=== PATIENT | female | born 1975 | race African-American/Black ===

== ENCOUNTER 2017-08-14 04:42 | Emergency (ER) | payer MEDICAID ==
[~2017-08-14] VITALS: Ht 154.9 cm; Wt 61.2 kg
[~2017-08-14 04:42] MED LIST: AMOXIL500 MG PO; ANAPROX DS550 MG PO; CIPRODEX 0.3%-7.5 ML OT; FLOMAX0.4 MG PO; HYDROCODONE BIT1 T11 PO; MACROBID100 M1 PO; Motrin,Rufen800 MG PO; PHENERGAN W/DM120 ML PO; PHENERGAN25 M1 PO; PRILOSEC20 M2 PO; SUDAFED60 MG PO; TRIMOX500 MG PO; ULTRAM50 MG PO; ZANTAC150 MG PO; ZOFRAN ODT4 MG SL
[2017-08-14 05:28] LABS: BASO % 0.3 % (0.0-1.0); EOS # 0.1 10*3/uL (0.0-0.4); HEMATOCRIT 33.9 % (37.0-47.0); HEMOGLOBIN 11.2 g/dl (12.0-16.0); LYMPH % 53.9 % (27.0-41.0); MEAN CELL VOLUME 77.8 fl (81.0-99.0); MEAN CORPUSCULAR HGB 25.7 pg (27.0-31.0); MEAN PLATELET VOLUME 9.7 fl (9.6-12.3); MONO # 0.5 10*3/uL (0.1-1.0); MONO % 6.1 % (3.0-9.0); NEUT # 2.8 10*3/uL (2.3-7.9); NEUT % 38.4 % (47.0-73.0); PLATELET COUNT AUTOMATED 483 10*3/uL (130-400); RED BLOOD COUNT 4.36 10*6/uL (4.10-5.10); RED CELL DISTRI WIDTH 17.5 % (0-14.5); WHITE BLOOD COUNT 7.4 10*3/uL (4.8-10.8)
[2017-08-14 05:48] LABS: ALBUMIN 3.6 gm/dl (3.1-4.5); ALKALINE PHOSPHATASE 100 U/L (45-117); BUN 5 mg/dl (7-24); CHLORIDE 110 mmol/L (98-107); POTASSIUM 3.6 mmol/L (3.5-5.1); SGOT/AST 13 IU/L (3-35); SGPT/ALT 21 U/L (12-78); SODIUM 144 mmol/L (136-145); TOTAL PROTEIN 7.5 gm/dL (6.4-8.2)
[2017-08-14 05:51] LABS: TROPONIN I < 0.015 ng/ml (<0.045)
[2017-08-14 05:53] LABS: ACETAMINOPHEN (TYLENOL) < 2.0 ug/ml (10-30)
[2017-08-14 06:12] LABS: BILIRUBIN NEGATIVE (NEGATIVE); BLOOD TRACE-INTACT (NEGATIVE); CLARITY CLEAR (CLEAR); COLOR YELLOW (YELLOW); GLUCOSE NEGATIVE (NEGATIVE); KETONE NEGATIVE (NEGATIVE); LEUKO ESTERASE 1+ (NEGATIVE); NITRITE NEGATIVE (NEGATIVE); PH 7.5 (5.0-9.0); UROBILINOGEN 0.2 E.U./dl (0.2-1.0)
[2017-08-14 06:18] LABS: BACTERIA TRACE
[2017-08-14 06:19] LABS: RBC 0-2 rbc/hpf (0-2)
[2017-08-14 06:21] LABS: URINE AMPHETAMINES < 1000 (1000ng/ml); URINE BARBITURATES < 200 (200ng/ml); URINE BENZODIAZEPINES < 200 (200ng/ml); URINE CANNABINOIDS (THC) < 50 (50ng/ml); URINE COCAINE > 300 (300ng/ml); URINE METHADONE < 300 (300ng/ml); URINE OPIATES < 300 (300ng/ml)
[2017-08-14 06:22] LABS: URINE PHENCYCLIDINE < 25 (25ng/ml)
[2017-08-14 09:31] VITALS: BP 128/85
[2017-08-14] MEDS ORDERED: PRINIVIL10 MG PO (09:40)
[2017-08-14] MEDS ORDERED: FLAGYL500 MG PO (09:40)
== END 2017-08-14 09:55 | disposition home or self-care (01) ==
LOC: ED 04:42
PROVIDERS: Emergency Medicine Emergency Medical Services
DX: F10.129 Alcohol abuse with intoxication, unspecified (principal); I15.9 Secondary hypertension, unspecified; A59.9 Trichomoniasis, unspecified; F17.200 Nicotine dependence, unspecified, uncomplicated

== ENCOUNTER 2017-08-15 17:25 | Inpatient (IN) | payer MEDICAID ==
[~2017-08-15] VITALS: Ht 154.9 cm; Wt 62.6 kg
--- NOTE | ~2017-08-15 | PR ---
[place], [place] PROGRESS NOTE NAME: MARLENY CLANCY [facility] #: [id number] UNIT #: [id number] ROOM: 520 DOCTOR: CLAUDIA BRANTLEY MD BIRTHDATE: [birth year] DOS: 08/18/2017 The patient has been admitted to the hospital with chest pain and she has a history of drug abuse also. The patient underwent a stress test and echocardiogram. Stress test was negative. Echocardiogram showed some regurgitation, mitral regurgitation with slight enlargement of the left atrium. She is feeling better, but she still is complaining of some chest pain. At present, she is sitting comfortably and eating her breakfast. I discussed with the patient that she shall not be smoking and she is not to use any cocaine and discussed about it in detail and the patient agreed she will not do any of this anymore. Her blood pressure is 122/55, pulse 60, respirations 20, temperature 98.9. CLAUDIA BRANTLEY MD CM:PNTRANS [phone] CLAUDIA BRANTLEY MD 08/21/17 0616 interface
--- NOTE | ~2017-08-15 | PR ---
[place], [place] PROGRESS NOTE NAME: MARLENY CLANCY [facility] #: [id number] UNIT #: [id number] ROOM: 520 DOCTOR: JENNIFER RODRIGUEZ MD BIRTHDATE: [birth year] DOS: 08/19/2017 SUBJECTIVE: The patient is flat in bed, continued to complain of chest pain that appears coming from the right side, radiates downwards around her breasts to the left. The pain surprisingly is improved when the patient sat up and leaned forward. This has been going on since last night. There is no symptomatic palpitation. OBJECTIVE: VITAL SIGNS: Blood pressure 129/78, heart rate 79, respiratory rate of 14, temperature 97.9. NECK: Good upstroke, no bruit. HEART: S1, S2 with no rub. LUNGS: Clear to auscultation. EXTREMITIES: Lower extremities, no edema. LABORATORY DATA: White count 9.0, hemoglobin 9.8, potassium 4.2, creatinine 0.74. GFR more than 60%. ASSESSMENT AND PLAN: History of ____ chest pain in a patient with history of cocaine abuse, currently the pain appears to have some pleuritic component. For that, I will go ahead and check sed rate and CRP. I will hold on adding any medication for now pending the results of the above tests. The patient already had both echocardiogram and a stress test, both were normal with normal LV function and no wall motion abnormalities. JENNIFER RODRIGUEZ MD CM:PNTRANS [phone] JENNIFER RODRIGUEZ MD 08/21/17 2660 interface
--- NOTE | ~2017-08-15 | PR ---
[place], [place] PROGRESS NOTE NAME: MARLENY CLANCY [facility] #: [id number] UNIT #: [id number] ROOM: 520 DOCTOR: CLAUDIA BRANTLEY MD BIRTHDATE: [birth year] DOS: SUBJECTIVE: The patient has been admitted to hospital with cocaine overdose and chest pain. The patient is feeling somewhat better, but she is still having chest pain. No difficulty in breathing. No nausea. No vomiting. According to Dr. Evan Sommer, the patient is not having any cardiac problem. Her stress test and echocardiogram were normal and she is having atypical chest pain with hypertension, tobacco abuse and cocaine use. The patient is counseled in detail not to use any cocaine anymore, counseling done about it in detail and also advised to stop smoking. OBJECTIVE: CHEST: Clear. HEART: Regular. ABDOMEN: Soft. VITAL SIGNS: Blood pressure 119/53, pulse 75, respirations 18, temperature 98.4. PLAN: The patient will be encouraged to ambulate today and if everything is okay, she will be discharged home tomorrow. CLAUDIA BRANTLEY MD CM:PNTRANS [phone] CLAUDIA BRANTLEY MD 08/19/17 1055 interface
--- NOTE | ~2017-08-15 | PR ---
[place], [place] PROGRESS NOTE NAME: MARLENY CLANCY [facility] #: [id number] UNIT #: [id number] ROOM: 520 DOCTOR: MARTHA DOWNS MD BIRTHDATE: [birth year] DOS: 08/17/2017 SUBJECTIVE: The patient was seen in the Cardiology Department today, 08/17/2017, just prior to a stress test. She continues to have symptoms of fatigue and chest discomfort. In general, she feels poorly. She denies dyspnea, orthopnea or peripheral edema. OBJECTIVE: VITAL SIGNS: On exam today, her pulse is 84 and regular, blood pressure is 142/90. She is afebrile. NECK: Supple. She has no jugular distention. Carotids are full. LUNGS: Respirations are unlabored. Her chest is clear. HEART: Has regular rhythm with a soft S4 gallop. ABDOMEN: Benign. EXTREMITIES: Showed no edema. IMPRESSION: 1. Atypical chest pain. 2. Hypertension. 3. Tobacco abuse. 4. Cocaine abuse. 5. No evidence for acute myocardial ischemia seen on this admission. PLAN: We will proceed with a pharmacologic stress test. The patient feels too poorly to walk for her stress test. Further recommendations will depend upon the results of the stress test. I thank the hospitalist physicians for asking our advice regarding her care. MARTHA DOWNS MD CM:PNTRANS [phone] MARTHA DOWNS MD 08/17/17 1029 interface
[~2017-08-15 17:25] MED LIST changes: +FLAGYL500 MG PO; +PRINIVIL10 MG PO
[2017-08-15 17:32] VITALS: BP 148/104
[2017-08-15 17:37] VITALS: BP 149/104
[2017-08-15 18:10] LABS: BASO % 0.3 % (0.0-1.0); EOS # 0.2 10*3/uL (0.0-0.4); EOS % 1.7 % (1.0-4.0); HEMATOCRIT 33.1 % (37.0-47.0); HEMOGLOBIN 10.9 g/dl (12.0-16.0); LYMPH # 3.7 10*3/uL (1.3-4.4); LYMPH % 38.7 % (27.0-41.0); MEAN CELL VOLUME 77.9 fl (81.0-99.0); MEAN CORPUSCULAR HGB 25.6 pg (27.0-31.0); MEAN CORPUSCULAR HGB CONC 32.9 g/dl (33.0-37.0); MEAN PLATELET VOLUME 9.2 fl (9.6-12.3); MONO # 0.7 10*3/uL (0.1-1.0); MONO % 7.1 % (3.0-9.0); PLATELET COUNT AUTOMATED 495 10*3/uL (130-400); RED BLOOD COUNT 4.25 10*6/uL (4.10-5.10); RED CELL DISTRI WIDTH 17.8 % (0-14.5); WHITE BLOOD COUNT 9.5 10*3/uL (4.8-10.8)
[2017-08-15 18:27] LABS: ALBUMIN 3.4 gm/dl (3.1-4.5); ALKALINE PHOSPHATASE 111 U/L (45-117); BUN 7 mg/dl (7-24); CHLORIDE 107 mmol/L (98-107); CREATININE 0.73 mg/dL (0.55-1.02); LIPASE 96 U/L (73-393); POTASSIUM 4.2 mmol/L (3.5-5.1); SGOT/AST 37 IU/L (3-35); SGPT/ALT 30 U/L (12-78); SODIUM 138 mmol/L (136-145); TOTAL PROTEIN 7.1 gm/dL (6.4-8.2); TROPONIN I < 0.015 ng/ml (<0.045)
[2017-08-15 18:32] VITALS: BP 151/100
--- NOTE | 2017-08-15 18:33 | NUR ---
PT MEDICATED WITH TORADOL PER MID LEVEL ORDER FOR C/O CHEST PAIN.---JOON CAGE RN
[2017-08-15 18:36] LABS: ACT PARTIAL THROMBO TIME 23.8 SECONDS (20.8-31.5); INTERNATIONAL NORM RATIO 0.9 (2.0-3.5)
[2017-08-15 18:43] LABS: BILIRUBIN NEGATIVE (NEGATIVE); BLOOD NEGATIVE (NEGATIVE); CLARITY SL CLOUDY (CLEAR); COLOR YELLOW (YELLOW); GLUCOSE NEGATIVE (NEGATIVE); KETONE NEGATIVE (NEGATIVE); LEUKO ESTERASE NEGATIVE (NEGATIVE); NITRITE NEGATIVE (NEGATIVE); SPECIFIC GRAVITY 1.025 (1.005-1.030); UROBILINOGEN 0.2 E.U./dl (0.2-1.0)
[2017-08-15 18:52] LABS: URINE AMPHETAMINES < 1000 (1000ng/ml); URINE BARBITURATES > 200 (200ng/ml); URINE BENZODIAZEPINES < 200 (200ng/ml); URINE CANNABINOIDS (THC) < 50 (50ng/ml); URINE COCAINE > 300 (300ng/ml); URINE METHADONE < 300 (300ng/ml); URINE OPIATES < 300 (300ng/ml)
[2017-08-15 18:58] LABS: URINE PHENCYCLIDINE < 25 (25ng/ml)
[2017-08-15 19:24] VITALS: BP 169/96
--- NOTE | 2017-08-15 19:56 | NUR ---
CALLED TO GIVE REPORT AWAITING LEAH TO GIVE CALLBACK
[2017-08-15 20:30] VITALS: BP 150/93
--- NOTE | 2017-08-15 21:50 | NUR ---
SCHEDULED MORPHINE GIVEN FOR CHEST PAIN RATED 9/10. WILL MONITOR.
--- NOTE | 2017-08-15 22:00 | NUR ---
MORHINE EFFECTIVE. PATIENT STATES "I'M FEELING BETTER." PAIN WAS RATED 5/10, PATIENT SATISFIED.
[2017-08-16] VITALS: BP 140/90
--- NOTE | 2017-08-16 00:29 | NUR ---
PATIENT MEDICATED SLOWLY WITH MORPHINE 2 MG IV PER PRN ORDER FOR C/O CHEST PAIN. RATED PAIN A 8-9/10 WITH 10 BEING THE WORST . SEE EMAR. REINFORCED USE OF CALL LIGHT.
--- NOTE | 2017-08-16 05:55 | NUR ---
PATIENT MEDICATED SLOWLY WITH MORPHINE 2 MG IV PER PATIENT REQUEST AND PRN ORDER FOR C/O PAIN. RATED PAIN A 7/10 WITH 10 BEING THE WORST. SEE EMAR. REINFORCED USE OF CALL LIGHT.
[2017-08-16 06:37] LABS: BASO % 0.3 % (0.0-1.0); EOS # 0.2 10*3/uL (0.0-0.4); EOS % 2.4 % (1.0-4.0); HEMOGLOBIN 10.6 g/dl (12.0-16.0); LYMPH % 42.1 % (27.0-41.0); MEAN CORPUSCULAR HGB 26.2 pg (27.0-31.0); MEAN CORPUSCULAR HGB CONC 33.1 g/dl (33.0-37.0); MEAN PLATELET VOLUME 9.6 fl (9.6-12.3); MONO # 0.6 10*3/uL (0.1-1.0); NEUT # 4.6 10*3/uL (2.3-7.9); PLATELET COUNT AUTOMATED 459 10*3/uL (130-400); RED BLOOD COUNT 4.05 10*6/uL (4.10-5.10); RED CELL DISTRI WIDTH 17.7 % (0-14.5); WHITE BLOOD COUNT 9.4 10*3/uL (4.8-10.8)
[2017-08-16 06:58] LABS: BUN 8 mg/dl (7-24); CHLORIDE 107 mmol/L (98-107); CHOLESTEROL 141 mg/dL (<200); CREATININE 0.74 mg/dL (0.55-1.02); HDL CHOLESTEROL 70 mg/dl (40-60); LDL CHOLESTEROL 46 mg/dL (9-159); PHOSPHOROUS 2.7 mg/dL (2.5-4.9); POTASSIUM 4.2 mmol/L (3.5-5.1); SODIUM 137 mmol/L (136-145); TRIGLYCERIDES 124 mg/dl (<150); VLDL CHOLESTEROL 25 mg/dL (6-40)
[2017-08-16 07:46] LABS: VITAMIN D, 25-HYDROXY 8.2 ng/mL (30-100)
--- NOTE | 2017-08-16 08:00 | NUR ---
HOB ELEVATED, EASY RESPIRATIONS WITH SKIN W/D. PT ADMITS TO PERSISTANT MIDSTERNAL NON-RADIATING CHEST PAIN. DENIES VISUAL CHANGES TODAY BUT ADMITS TO DIZZINESS WITH AMBULATION. VSS & CHARTED. DR ALEXANDRA IN TO SEE PT & MADE AWARE OF PT C/O. CALL LIGHT SYSTEM REINFORCED FOR ASSISTANCE. SEE SHIFT ASSESSMENT. PT STATES MEDICATION GIVEN EARLIER EFFECTIVE FOR SHORT PERIODS. WILL CONTINUE TO MONITOR.
--- NOTE | 2017-08-16 08:30 | NUR ---
GROCERY PACKER VS. STATES SHE IS JUST VISITING HERE IN [place] AND THAT SHE LIVES IN [place], [place]. DENIES ANY DC NEEDS.
--- NOTE | 2017-08-16 10:37 | NUR ---
MEDICATED PO ORDERED PER PT REQUEST WITH NORCO FOR C/O MIDSTERNAL CHEST DISCOMFORT.NON-RADIATING.
[2017-08-16 12:00] VITALS: BP 136/79
--- NOTE | 2017-08-16 12:35 | NUR ---
DR DOWNS'S OFFICE STAFF NOTIFIED OF CONSULT.
--- NOTE | 2017-08-16 12:55 | NUR ---
DR MORA IN TO SEE PT & REQUESTS THAT THIS RN CALL DR POWERS/DR ALEXANDRA TO TRANSFER THIS PT TO HIS SERVICES.
--- NOTE | 2017-08-16 12:59 | NUR ---
SPOKE WITH DR SANCHEZ & REQUESTED THAT SERVICES BE TRANSFERRED TO DR MORA.
[2017-08-16 16:00] VITALS: BP 112/68
--- NOTE | 2017-08-16 17:30 | NUR ---
CALLED TO PTS ROOM, PT STATES "LEFT SIDED FACIAL NUMBNESS" NO OBVIOUS FACIAL DROOPING NOTED, POLICY DIRECTOR STRONG & EQUAL BILATERALLY, HA. SPEECH CLEAR. VSS & CHARTED. OFFERED SUPPORTIVE CARE. WILL INFORM DR DOWNS.
--- NOTE | 2017-08-16 18:26 | NUR ---
DR DOWNS IN TO SEE PT. INFORMED OF PTS EARLIER C/O OF LEFT SIDED FACIAL NUMBNESS.
[2017-08-16 20:00] VITALS: BP 115/80
[2017-08-17] VITALS: BP 112/56
[2017-08-17 06:18] LABS: BASO % 0.3 % (0.0-1.0); BUN 14 mg/dl (7-24); CHLORIDE 107 mmol/L (98-107); CREATININE 0.74 mg/dL (0.55-1.02); EOS # 0.2 10*3/uL (0.0-0.4); HEMATOCRIT 29.8 % (37.0-47.0); HEMOGLOBIN 9.8 g/dl (12.0-16.0); LYMPH % 43.8 % (27.0-41.0); MEAN CELL VOLUME 78.6 fl (81.0-99.0); MEAN CORPUSCULAR HGB 25.9 pg (27.0-31.0); MEAN CORPUSCULAR HGB CONC 32.9 g/dl (33.0-37.0); MEAN PLATELET VOLUME 9.6 fl (9.6-12.3); MONO # 0.7 10*3/uL (0.1-1.0); MONO % 7.2 % (3.0-9.0); NEUT # 4.2 10*3/uL (2.3-7.9); NEUT % 46.3 % (47.0-73.0); PLATELET COUNT AUTOMATED 450 10*3/uL (130-400); POTASSIUM 4.2 mmol/L (3.5-5.1); RED BLOOD COUNT 3.79 10*6/uL (4.10-5.10); RED CELL DISTRI WIDTH 17.7 % (0-14.5); SODIUM 139 mmol/L (136-145)
[2017-08-17 08:00] VITALS: BP 141/72; BP 142/90
--- NOTE | 2017-08-17 08:00 | NUR ---
LYING IN BED FLAT, NO OBVIOUS S/S DISTRESS NOTED. PT CONTINUES TO C/O MIDSTERNAL, NON-RADIATING CHEST PAIN. DENIES NAUSEA OR VISUAL CHANGES. DENIES FACIAL NUMBNESS BUT ADMITS TO "DIZZINESS WHEN I GET UP" DISCUSSED NPO STATUS FOR AM PROCEDURE. PT VOICES UNDERSTANDING. SEE SHIFT ASSESSMENT.
--- NOTE | 2017-08-17 10:01 | NUR ---
INFORMED SIGNED CONSENT OBTAINED FOR LEXISCAN STRESS WITH DR DOWNS. RESTING EKG NSR WITH PAC HR 68 BP 148/78. PULSE OX 100% LUNGS CLEAR. PT COMPLETED ONE MINUTE OF A LEXISCAN PROTOCOL WITH PT RECEIVING LEXISCAN 0.4MG IV OVER 10 SECONDS. NO ARRHYTMIAS, AND NON DIAGNOSTIC ST CHANGES NOTED WITH INFUISION, PT C/O HEADACHE. LAST RECOVERY HR OF 109 BP 144/82. PT IN STABLE CONDITION, AWAITING NUCLEAR IMAGES.
--- NOTE | 2017-08-17 10:35 | NUR ---
REMAINS IN CARDIAC REHAB
--- NOTE | 2017-08-17 10:50 | NUR ---
Patient not available for ECHO. she is off the floor for other testing.
--- NOTE | 2017-08-17 11:19 | NUR ---
MEDICATED PO ORDERED PER PT REQUEST WITH NORCO FOR C/O PERSISTANT MIDSTERNAL CHEST DISCOMFORT. PT RATES PAIN 05/24. SEE EMAR.
[2017-08-17 12:00] VITALS: BP 125/92
--- NOTE | 2017-08-17 12:30 | NUR ---
MEDICATION EFFECTIVE PER PT IN RELIEVING DISCOMFORT. WILL CONTINUE TO MONITOR.
--- NOTE | 2017-08-17 14:06 | NUR ---
DR DELVALLE AWARE OF CONSULT.
--- NOTE | 2017-08-17 14:08 | NUR ---
WENT TO PTS ROOM TO DISCUSS NPO STATUS, PT SLEEPING. DID NOT AWAKEN AT THIS TIME.
--- NOTE | 2017-08-17 14:32 | NUR ---
DR DELVALLE IN TO SEE PT.
[2017-08-17 16:00] VITALS: BP 129/79
[2017-08-17 20:00] VITALS: BP 127/63
--- NOTE | 2017-08-17 21:05 | NUR ---
PATIENT MEDICATED PER SCHEDULED MED FOR C/O CHEST PAIN. PATIENT MEDICATED SLOWLY WITH MORPHINE 2 MG IV PER ORDER. SEE EMAR. REINFORCED USE OF CALL LIGHT
[2017-08-18] VITALS: BP 122/55
[2017-08-18 08:00] VITALS: BP 126/70
--- NOTE | 2017-08-18 08:05 | NUR ---
PT REQUESTED PAIN MEDICATION FOR CHEST PAIN AROUND THE LEFT BREAST AREA. PAIN RATED AT 5 OUT OF 10. PAIN IS DESCRIBED PRESSURE AND CONSTANT.
--- NOTE | 2017-08-18 09:02 | NUR ---
PT STATES NORCO WAS EFFECTIVE. STATES PAIN IS STILL A 5 OUT OF 10 BUT "MORE TOLERABLE."
[2017-08-18 11:54] VITALS: BP 122/77
--- NOTE | 2017-08-18 14:13 | NUR ---
PT REQUESTED MEDICATION FOR MIDSTERNAL CHEST PAIN RATED AT 5 OUT OF 10. DESCRIBED CONSTANT AND FEELS LIKE "PRESSURE". PT SITTING UP, TALKING TO FRIEND. NO OBVIOUS DISTRESS NOTED.
--- NOTE | 2017-08-18 15:02 | NUR ---
PT STATES MEDICATION WAS EFFECTIVE FOR PAIN. PAIN RATED AT 2 OUT OF 10.
[2017-08-18 16:00] VITALS: BP 117/68
--- NOTE | 2017-08-18 16:40 | NUR ---
PT REQUESTED PAIN MEDICATION FOR MIDSTERNAL PAIN RATED AT 5 OUT OF 10 AND DESCRIBES IT CONSTANT AND "FEELS LIKE PRESSURE".
--- NOTE | 2017-08-18 17:13 | NUR ---
PT STATES NORCO WAS EFFECTIVE. RATES PAIN AT 1 OUT OF 10.
[2017-08-18 20:00] VITALS: BP 134/55
[2017-08-19] VITALS: BP 119/53
--- NOTE | 2017-08-19 07:49 | NUR ---
DR. BRANTLEY IN TO SEE PT.
[2017-08-19 08:00] VITALS: BP 129/78
--- NOTE | 2017-08-19 08:00 | NUR ---
PT REQUESTED MEDICATION FOR MIDSTRENAL CHEST PAIN RATED AT 6 OUT OF 10. PT DESCRIBES PAIN AT CONSTANT PRESSURE. NORCO GIVEN.
--- NOTE | 2017-08-19 08:52 | NUR ---
NORCO EFFECTIVE PER PT. PAIN RATED AT 1 OUT OF 10.
--- NOTE | 2017-08-19 11:50 | NUR ---
PER PT, MOTRIN EFFECTIVE FOR PAIN. RATES PAIN AT 2 OUT OF 10.
--- NOTE | 2017-08-19 11:55 | NUR ---
PT UP WALKING HALLS. NO DIZZINESS/SOB NOTED PER PT. TOLERATING WELL.
[2017-08-19 12:00] VITALS: BP 131/65
--- NOTE | 2017-08-19 14:12 | NUR ---
PT REQUESTED MEDICATION FOR MIDSTERNAL/LEFT BREAST AREA CHEST PAIN. RATED AT 7 OUT OF 10 AND DESCRIBED "CONSTANT PRESSURE."
--- NOTE | 2017-08-19 15:02 | NUR ---
PER PT, MEDICATION EFFECTIVE FOR PAIN. PAIN RATED AT 2 OUT OF 10.
[2017-08-19 16:00] VITALS: BP 114/63; BP 135/54
--- NOTE | 2017-08-19 18:01 | NUR ---
PT IN BED, TALKING ON PHONE AND EATING WHILE WATCHING TV. PT IN NO OBVIOUS DISTRESS OR PAIN.
--- NOTE | 2017-08-19 18:56 | NUR ---
PT REQUESTED MEDICATION FOR MIDSTERNAL/LEFT BREAST AREA CHEST PAIN. PT RATES PAIN AT 6 OUT OF 10 AND DESCRIBES IT A "CONSTANT PRESSURE." DIETER KOHLER.
--- NOTE | 2017-08-19 19:54 | NUR ---
PATIENT AWAKE IN BED AT THIS TIME. PATIENT IS C/O OF SOME CHEST DISCOMFORT BUT STATES IT IS MUCH BETTER THAN IT HAD BEEN, NOW RATING PAIN 6/10. DISCUSSED SCHEDULED IV MORPHINE DUE AT 2099. PATIENT REQUESTING THAT MEDICATION BE GIVEN AFTER 2129 BECAUSE IT MAKES HER TIRED. WILL ADMINISTER SCHEDULED MEDICATION AFTER 2129. PATIENT VOICES NO OTHER COMPLAINTS AT THIS TIME. WILL MONITOR. CALL LIGHT LEFT IN REACH.
[2017-08-19 20:00] VITALS: BP 121/74
--- NOTE | 2017-08-19 21:39 | NUR ---
SCHEDULED IV MORPHINE ADMINISTERED SLOWLY PER ORDER. MEDICATION GIVEN AFTER 2129 PER PATIENT REQUEST. PATIENT RATING CHEST DISCOMFORT 6/10 AT THIS TIME. WILL MONITOR EFFECTIVENESS OF MEDICATION. CALL LIGHT LEFT IN REACH.
--- NOTE | 2017-08-19 22:21 | NUR ---
PATIENT STATES EARLIER MEDICATION HELPED WITH HER CHEST PAIN. NOW RATING IT 3/10. WILL CONTINUE TO MONITOR. CALL LIGHT IN REACH.
[2017-08-20] VITALS: BP 118/69
--- NOTE | 2017-08-20 02:41 | NUR ---
PATIENT AWAKE IN BED WATCHING TV. PATIENT DOES NOT APPEAR TO BE IN DISTRESS AND DENIES ANY NEW OR WORSENING SYMPTOMS AT THIS TIME. WILL CONTINUE TO MONITOR. CALL LIGHT LEFT IN REACH.
--- NOTE | 2017-08-20 04:02 | NUR ---
PATIENT ASLEEP IN BED AT THIS TIME. RESPIRATIONS EASY. NO S/S OF DISTRESS NOTED. ON ROOM AIR. CALL LIGHT IN REACH.
[2017-08-20 06:02] LABS: CREATININE 0.64 mg/dL (0.55-1.02)
[2017-08-20 06:17] LABS: BASO % 0.2 % (0.0-1.0); EOS # 0.2 10*3/uL (0.0-0.4); EOS % 2.5 % (1.0-4.0); HEMATOCRIT 32.7 % (37.0-47.0); HEMOGLOBIN 10.7 g/dl (12.0-16.0); LYMPH # 3.5 10*3/uL (1.3-4.4); LYMPH % 41.2 % (27.0-41.0); MEAN CORPUSCULAR HGB 26.2 pg (27.0-31.0); MEAN CORPUSCULAR HGB CONC 32.7 g/dl (33.0-37.0); MEAN PLATELET VOLUME 9.8 fl (9.6-12.3); MONO # 0.8 10*3/uL (0.1-1.0); MONO % 9.2 % (3.0-9.0); NEUT % 46.4 % (47.0-73.0); PLATELET COUNT AUTOMATED 496 10*3/uL (130-400); RED BLOOD COUNT 4.09 10*6/uL (4.10-5.10); RED CELL DISTRI WIDTH 18.1 % (0-14.5); WHITE BLOOD COUNT 8.5 10*3/uL (4.8-10.8)
[2017-08-20 08:00] VITALS: BP 124/50
--- NOTE | 2017-08-20 08:00 | NUR ---
RESTING QUIETLY NO C/O NO DISTRESS NOTED. STATES SHE IS FEELING BETTER. SEE SHIFT ASSESSMENT.
[2017-08-20 12:00] VITALS: BP 124/50
--- NOTE | 2017-08-20 13:34 | NUR ---
MEDICATED PO NORCO FOR C/O LEFT SIDE RIB AND CHEST PAIN. RATES PAIN 5/10. WHEN ASK PT TO POINT TO WHERE PAIN IS POINTS TO RIGHT SIDE OF CHEST.
--- NOTE | 2017-08-20 14:35 | NUR ---
DISCHARGED TO HOME. INSTRUCTIONS REVIEWED WITH PT. VOICES UNDERSTANDING. REFUSED TO GET FLU VACCINE.
== END 2017-08-20 14:50 | disposition home or self-care (01) | DRG 918 ==
LOC: ED 17:25 → EDHOLD 19:10 → 5E 19:10
PROVIDERS: Internal Medicine; Physician Assistant; ADMIT Internal Medicine
PROC: 4A02XM4 Measurement of Cardiac Total Activity, External Approach (ICD-10-PCS; principal; 2017-08-17)
PROC: 3E073KZ Introduction of Other Diagnostic Substance into Coronary Artery, Percutaneous Approach (ICD-10-PCS; 2017-08-17)
DX: T40.5X1A Poisoning by cocaine, accidental (unintentional), initial encounter (principal); E44.1 Mild protein-calorie malnutrition; E83.41 Hypermagnesemia; A59.9 Trichomoniasis, unspecified; D50.9 Iron deficiency anemia, unspecified; D47.3 Essential (hemorrhagic) thrombocythemia; I16.1 Hypertensive emergency; I10 Essential (primary) hypertension; R74.0 Nonspecific elevation of levels of transaminase and lactic acid dehydrogenase [LDH]; K21.9 Gastro-esophageal reflux disease without esophagitis; F19.90 Other psychoactive substance use, unspecified, uncomplicated; M94.0 Chondrocostal junction syndrome [Tietze]; F17.210 Nicotine dependence, cigarettes, uncomplicated; Z71.6 Tobacco abuse counseling; Z79.899 Other long term (current) drug therapy; Z72.89 Other problems related to lifestyle; Z68.23 Body mass index [BMI] 23.0-23.9, adult; Z79.82 Long term (current) use of aspirin

== ENCOUNTER 2018-02-09 21:15 | Inpatient (IN) | payer OTHER ==
[~2018-02-09] VITALS: Ht 154.9 cm; Wt 56.3 kg
[2018-02-09] VITALS (7 sets, daily range): BP systolic 131–167; BP diastolic 71–122
[2018-02-09 21:29] LABS: HEMATOCRIT 39.3 % (37.0-47.0); HEMOGLOBIN 12.7 g/dl (12.0-16.0); MEAN CELL VOLUME 78.3 fl (81.0-99.0); MEAN CORPUSCULAR HGB 25.3 pg (27.0-31.0); MEAN CORPUSCULAR HGB CONC 32.3 g/dl (33.0-37.0); MEAN PLATELET VOLUME 9.2 fl (9.6-12.3); PLATELET COUNT AUTOMATED 656 10*3/uL (130-400); RED BLOOD COUNT 5.02 10*6/uL (4.10-5.10); RED CELL DISTRI WIDTH 16.7 % (0-14.5); WHITE BLOOD COUNT 15.4 10*3/uL (4.8-10.8)
[2018-02-09 21:40] LABS: ACT PARTIAL THROMBO TIME 22.1 SECONDS (20.8-31.5); INTERNATIONAL NORM RATIO 0.9 (2.0-3.5)
[2018-02-09 21:41] LABS: BILIRUBIN NEGATIVE (NEGATIVE); BLOOD TRACE-INTACT (NEGATIVE); CLARITY CLEAR (CLEAR); COLOR YELLOW (YELLOW); GLUCOSE NEGATIVE (NEGATIVE); KETONE NEGATIVE (NEGATIVE); LEUKO ESTERASE NEGATIVE (NEGATIVE); NITRITE NEGATIVE (NEGATIVE); PH 5.5 (5.0-9.0); SPECIFIC GRAVITY <= 1.005 (1.005-1.030); UROBILINOGEN 0.2 E.U./dl (0.2-1.0)
[2018-02-09 21:45] LABS: ALBUMIN 4.4 gm/dl (3.1-4.5); ALKALINE PHOSPHATASE 124 U/L (45-117); BUN 11 mg/dl (7-24); CHLORIDE 98 mmol/L (98-107); CREATININE 1.04 mg/dL (0.55-1.02); POTASSIUM 3.7 mmol/L (3.5-5.1); SGOT/AST 23 IU/L (3-35); SGPT/ALT 27 U/L (12-78); SODIUM 135 mmol/L (136-145); TOTAL PROTEIN 8.8 gm/dL (6.4-8.2)
[2018-02-09 21:48] LABS: BASOPHILS 2 % (0-1); TOTAL CELLS COUNTED 100 #CELLS
[2018-02-09 21:49] LABS: PLATELET SUFFICIENCY HIGH (NORMAL); STOMATOCYTE FEW; TARGET CELLS FEW
[2018-02-09 21:50] LABS: URINE AMPHETAMINES < 1000 (1000ng/ml); URINE BARBITURATES < 200 (200ng/ml); URINE BENZODIAZEPINES < 200 (200ng/ml); URINE CANNABINOIDS (THC) > 50 (50ng/ml); URINE COCAINE > 300 (300ng/ml); URINE METHADONE < 300 (300ng/ml); URINE OPIATES < 300 (300ng/ml)
[2018-02-09 21:52] LABS: RBC 0-2 rbc/hpf (0-2); WBC 0-2 wbc/hpf (0-5)
[2018-02-09 21:53] LABS: URINE PHENCYCLIDINE < 25 (25ng/ml)
[2018-02-09 21:53] LABS: TROPONIN I < 0.015 ng/ml (<0.045)
[2018-02-10 00:07] VITALS: BP 146/82
[2018-02-10 00:09] VITALS: BP 133/80
[2018-02-10 01:13] VITALS: BP 149/96
[2018-02-10 01:25] VITALS: BP 150/94
[2018-02-10] MEDS ORDERED: PRILOSEC20 M1 PO (01:37)
[2018-02-10] MEDS ORDERED: LISINOPRIL10 M1 PO (01:37)
[2018-02-10 04:00] VITALS: BP 136/80
[2018-02-10 08:00] VITALS: BP 152/83
== END 2018-02-10 12:30 | disposition left against medical advice (07) | DRG 313 ==
LOC: ED 21:15 → EDHOLD 02-10 00:46 → ICCU 02-10 00:54
PROVIDERS: Emergency Medicine
DX: R07.9 Chest pain, unspecified (principal); F17.210 Nicotine dependence, cigarettes, uncomplicated; I10 Essential (primary) hypertension; F41.0 Panic disorder [episodic paroxysmal anxiety]; Z53.21 Procedure and treatment not carried out due to patient leaving prior to being seen by health care provider; K21.9 Gastro-esophageal reflux disease without esophagitis; Z79.899 Other long term (current) drug therapy; Z71.6 Tobacco abuse counseling; Z98.891 History of uterine scar from previous surgery

== ENCOUNTER → 2018-06-13 | Outpatient (CLI) | payer OTHER ==
[~2018-06-13] MED LIST changes: +LISINOPRIL10 M1 PO; +PRILOSEC20 M1 PO
[2018-06-13 14:32] LABS: BASO % 0.4 % (0.0-1.0); EOS # 0.4 10*3/uL (0.0-0.4); EOS % 4.2 % (1.0-4.0); HEMATOCRIT 32.6 % (37.0-47.0); LYMPH # 3.9 10*3/uL (1.3-4.4); LYMPH % 37.4 % (27.0-41.0); MEAN CELL VOLUME 80.7 fl (81.0-99.0); MEAN CORPUSCULAR HGB 24.8 pg (27.0-31.0); MEAN CORPUSCULAR HGB CONC 30.7 g/dl (33.0-37.0); MEAN PLATELET VOLUME 9.3 fl (9.6-12.3); MONO # 0.7 10*3/uL (0.1-1.0); MONO % 6.8 % (3.0-9.0); NEUT # 5.4 10*3/uL (2.3-7.9); NEUT % 50.8 % (47.0-73.0); PLATELET COUNT AUTOMATED 526 10*3/uL (130-400); RED BLOOD COUNT 4.04 10*6/uL (4.10-5.10); RED CELL DISTRI WIDTH 18.9 % (0-14.5); WHITE BLOOD COUNT 10.5 10*3/uL (4.8-10.8)
== END | disposition home or self-care (01) ==
LOC: RESCLI 02:26
PROVIDERS: Internal Medicine
DX: D50.0 Iron deficiency anemia secondary to blood loss (chronic) (principal); I10 Essential (primary) hypertension; K21.0 Gastro-esophageal reflux disease with esophagitis; E55.9 Vitamin D deficiency, unspecified; E78.00 Pure hypercholesterolemia, unspecified; F17.210 Nicotine dependence, cigarettes, uncomplicated

== ENCOUNTER → 2018-10-31 | Outpatient (CLI) | payer OTHER ==
[~2018-10-31] MED LIST changes: +B12,B-12,B 12500 MC1 PO; +CIPRO500 MG PO; +FERRETTS325 M1 PO; +LOSARTAN-HCTZ1 EAC1 PO; +VITAMIN D-32000 UNI1 PO; +ZETIA10 MG PO
== END | disposition home or self-care (01) ==
LOC: RESCLI 01:54
DX: E78.2 Mixed hyperlipidemia (principal); R25.2 Cramp and spasm; R19.7 Diarrhea, unspecified; I10 Essential (primary) hypertension; N92.4 Excessive bleeding in the premenopausal period; D50.8 Other iron deficiency anemias; E55.9 Vitamin D deficiency, unspecified; K21.9 Gastro-esophageal reflux disease without esophagitis; F17.210 Nicotine dependence, cigarettes, uncomplicated; Z79.899 Other long term (current) drug therapy

== ENCOUNTER → 2018-11-06 | Outpatient (CLI) | payer OTHER ==
[2018-11-06 08:25] LABS: BASO # 0.1 10*3/uL (0.0-0.1); BASO % 0.5 % (0.0-1.0); EOS # 0.6 10*3/uL (0.0-0.4); EOS % 6.6 % (1.0-4.0); HEMATOCRIT 38.5 % (37.0-47.0); HEMOGLOBIN 12.5 g/dl (12.0-16.0); LYMPH % 42.4 % (27.0-41.0); MEAN CELL VOLUME 90.2 fl (81.0-99.0); MEAN CORPUSCULAR HGB 29.3 pg (27.0-31.0); MEAN CORPUSCULAR HGB CONC 32.5 g/dl (33.0-37.0); MEAN PLATELET VOLUME 9.5 fl (9.6-12.3); MONO # 0.6 10*3/uL (0.1-1.0); MONO % 6.8 % (3.0-9.0); NEUT # 4.1 10*3/uL (2.3-7.9); NEUT % 43.4 % (47.0-73.0); PLATELET COUNT AUTOMATED 515 10*3/uL (130-400); RED BLOOD COUNT 4.27 10*6/uL (4.10-5.10); RED CELL DISTRI WIDTH 15.9 % (0-14.5); WHITE BLOOD COUNT 9.4 10*3/uL (4.8-10.8)
[2018-11-06 08:38] LABS: ALBUMIN 3.4 gm/dl (3.1-4.5); ALKALINE PHOSPHATASE 86 U/L (45-117); BUN 15 mg/dl (7-24); CHLORIDE 109 mmol/L (98-107); CHOLESTEROL 185 mg/dL (<200); CREATININE 0.77 mg/dL (0.55-1.02); HDL CHOLESTEROL 47 mg/dl (40-60); IRON 56 ug/dL (50-170); LDL CHOLESTEROL 86 mg/dL (9-159); POTASSIUM 3.9 mmol/L (3.5-5.1); SGOT/AST 26 IU/L (3-35); SGPT/ALT 39 U/L (12-78); SODIUM 141 mmol/L (136-145); TOTAL IRON BINDING CAPACITY 390 ug/dl (250-450); TOTAL PROTEIN 7.3 gm/dL (6.4-8.2); TRIGLYCERIDES 258 mg/dl (<150); VLDL CHOLESTEROL 52 mg/dL (6-40)
[2018-11-06 08:45] LABS: CKMB < 1.0 ng/ml (0.5-3.6); CPK 78 U/L (26-192)
[2018-11-06 09:22] LABS: FERRITIN 48.1 ng/mL (10.0-291.0); VITAMIN D, 25-HYDROXY 24.6 ng/mL (30-100)
== END | disposition home or self-care (01) ==
LOC: LAB 07:43
PROVIDERS: Internal Medicine
DX: E78.2 Mixed hyperlipidemia (principal); I10 Essential (primary) hypertension; D50.8 Other iron deficiency anemias; R25.2 Cramp and spasm

== ENCOUNTER → 2018-11-07 | Outpatient (CLI) | payer OTHER ==
[2018-11-07 14:19] LABS: HEMATOCRIT 40.1 % (37.0-47.0); HEMOGLOBIN 13.5 g/dl (12.0-16.0); MEAN CELL VOLUME 87.7 fl (81.0-99.0); MEAN CORPUSCULAR HGB 29.5 pg (27.0-31.0); MEAN CORPUSCULAR HGB CONC 33.7 g/dl (33.0-37.0); MEAN PLATELET VOLUME 9.2 fl (9.6-12.3); PLATELET COUNT AUTOMATED 528 10*3/uL (130-400); RED BLOOD COUNT 4.57 10*6/uL (4.10-5.10); RED CELL DISTRI WIDTH 15.9 % (0-14.5); WHITE BLOOD COUNT 9.4 10*3/uL (4.8-10.8)
[2018-11-07 14:51] LABS: ATYPICAL LYMPHS 1 % (0-0); BASOPHILS 1 % (0-1); PLATELET SUFFICIENCY NORMAL (NORMAL); TOTAL CELLS COUNTED 100 #CELLS
[2018-11-14 19:05] LABS: GTG BAND RESOLUTION ACHIEVED 400 (.)
== END | disposition home or self-care (01) ==
LOC: RESCLI 01:40
PROVIDERS: Internal Medicine
DX: D50.0 Iron deficiency anemia secondary to blood loss (chronic) (principal); F17.210 Nicotine dependence, cigarettes, uncomplicated; K21.9 Gastro-esophageal reflux disease without esophagitis; I10 Essential (primary) hypertension; E78.5 Hyperlipidemia, unspecified; Z79.899 Other long term (current) drug therapy

== ENCOUNTER → 2018-11-21 | Outpatient (CLI) | payer OTHER | END | disposition home or self-care (01) | LOC: RESCLI 04:50 | DX: E66.9 Obesity, unspecified (principal); D50.0 Iron deficiency anemia secondary to blood loss (chronic); H66.93 Otitis media, unspecified, bilateral; I10 Essential (primary) hypertension; K21.9 Gastro-esophageal reflux disease without esophagitis; E78.5 Hyperlipidemia, unspecified; F17.200 Nicotine dependence, unspecified, uncomplicated; Z88.8 Allergy status to other drugs, medicaments and biological substances; Z79.899 Other long term (current) drug therapy ==

== ENCOUNTER → 2019-11-21 | Outpatient (CLI) | payer OTHER | END | disposition home or self-care (01) | LOC: RESCLI 00:32 | DX: Z12.39 Encounter for other screening for malignant neoplasm of breast (principal); E55.9 Vitamin D deficiency, unspecified; K21.0 Gastro-esophageal reflux disease with esophagitis; I10 Essential (primary) hypertension; E78.00 Pure hypercholesterolemia, unspecified; D50.0 Iron deficiency anemia secondary to blood loss (chronic); H66.001 Acute suppurative otitis media without spontaneous rupture of ear drum, right ear; K52.9 Noninfective gastroenteritis and colitis, unspecified; F12.90 Cannabis use, unspecified, uncomplicated; E53.8 Deficiency of other specified B group vitamins; F17.200 Nicotine dependence, unspecified, uncomplicated; Z79.899 Other long term (current) drug therapy ==

== ENCOUNTER 2020-04-04 19:23 | Observation (INO) | payer OTHER ==
[~2020-04-04] VITALS: Ht 154.9 cm; Wt 74.0 kg
[2020-04-04 19:28] VITALS: BP 147/90
--- NOTE | 2020-04-04 19:50 | NUR ---
PT UNABLE TO URINATE AT THIS TIME.
[2020-04-04 20:06] LABS: BASO % 0.3 % (0.0-1.0); EOS # 0.2 10*3/uL (0.0-0.4); EOS % 1.5 % (1.0-4.0); HEMATOCRIT 37.7 % (37.0-47.0); LYMPH # 2.5 10*3/uL (1.3-4.4); LYMPH % 17.6 % (27.0-41.0); MEAN CELL VOLUME 90.2 fl (81.0-99.0); MEAN CORPUSCULAR HGB 29.7 pg (27.0-31.0); MEAN CORPUSCULAR HGB CONC 32.9 g/dl (33.0-37.0); MEAN PLATELET VOLUME 9.5 fl (9.6-12.3); MONO # 0.7 10*3/uL (0.1-1.0); MONO % 5.2 % (3.0-9.0); NEUT # 10.8 10*3/uL (2.3-7.9); NEUT % 74.8 % (47.0-73.0); PLATELET COUNT AUTOMATED 461 10*3/uL (130-400); RED BLOOD COUNT 4.18 10*6/uL (4.10-5.10); RED CELL DISTRI WIDTH 15.5 % (0-14.5); WHITE BLOOD COUNT 14.4 10*3/uL (4.8-10.8)
[2020-04-04 20:20] LABS: ALBUMIN 3.4 gm/dl (3.1-4.5); ALKALINE PHOSPHATASE 111 U/L (45-117); BUN 13 mg/dl (7-24); CHLORIDE 107 mmol/L (98-107); CREATININE 0.88 mg/dL (0.55-1.02); LIPASE 68 U/L (73-393); POTASSIUM 3.6 mmol/L (3.5-5.1); SGOT/AST 28 IU/L (3-35); SGPT/ALT 34 U/L (12-78); SODIUM 136 mmol/L (136-145); TOTAL PROTEIN 7.5 gm/dL (6.4-8.2)
[2020-04-04 21:08] LABS: BILIRUBIN NEGATIVE (NEGATIVE); BLOOD 2+ (NEGATIVE); CLARITY SL CLOUDY (CLEAR); COLOR YELLOW (YELLOW); GLUCOSE NEGATIVE (NEGATIVE); KETONE NEGATIVE (NEGATIVE); SPECIFIC GRAVITY 1.005 (1.005-1.030)
[2020-04-04 21:09] LABS: LEUKO ESTERASE NEGATIVE (NEGATIVE); NITRITE NEGATIVE (NEGATIVE); UROBILINOGEN 0.2 E.U./dl (0.2-1.0)
[2020-04-04 21:14] LABS: BACTERIA 1+; YEAST 2+
[2020-04-04 22:05] VITALS: BP 151/81
[2020-04-04 22:33] VITALS: BP 137/85
--- NOTE | 2020-04-04 22:33 | NUR ---
Time: 2232 A 45 year old FEMALE admitted to 5E under services of DILLAN MARSHALL DO. Pt. arrived via stretcher from ER. Chief complaint: ABDOMINAL PAIN. NATALIA RICHEY
--- NOTE | 2020-04-04 23:00 | NUR ---
PT MED REC UP TO DATE PER PT RECALL. PT A&O X3.
--- NOTE | 2020-04-04 23:55 | NUR ---
PT MEDICATED WITH PO NORCO PER PRN ORDER FOR C/O ABDOMINAL PAIN RATED 7/10. WILL MONITOR EFFECTIVENESS. CALL LIGHT IN REACH.
[2020-04-05] VITALS: BP 144/92; BP 174/60
--- NOTE | 2020-04-05 00:45 | NUR ---
EARLIER MEDICATION APPEARS EFFECTIVE. PT ASLEEP IN BED. RESPIRATIONS EASY. NO S/S OF DISTRESS NOTED. WILL MONITOR. CALL LIGHT IN REACH.
[2020-04-05 03:45] VITALS: BP 148/93
--- NOTE | 2020-04-05 03:48 | NUR ---
IV MORPHINE ADMINISTERED PER PRN ORDER FOR C/O PAIN IN ABDOMEN RATED 7/10. WILL MONITOR EFFECTIVENESS. IV ABX INFUSION INITIATED PER ORDER. WILL MONITOR. CALL LIGHT IN REACH.
--- NOTE | 2020-04-05 04:30 | NUR ---
EARLIER MORPHINE APPEARS EFFECTIVE. PT ASLEEP IN BED. RESPIRATIONS EASY. NO S/S OF DISTRESS NOTED. WILL MONITOR. CALL LIGHT IN REACH.
[2020-04-05 07:01] LABS: BASO % 0.3 % (0.0-1.0); EOS # 0.3 10*3/uL (0.0-0.4); EOS % 2.4 % (1.0-4.0); HEMATOCRIT 31.3 % (37.0-47.0); LYMPH # 2.2 10*3/uL (1.3-4.4); LYMPH % 19.9 % (27.0-41.0); MEAN CELL VOLUME 90.7 fl (81.0-99.0); MEAN CORPUSCULAR HGB 30.4 pg (27.0-31.0); MEAN CORPUSCULAR HGB CONC 33.5 g/dl (33.0-37.0); MEAN PLATELET VOLUME 9.5 fl (9.6-12.3); MONO # 0.6 10*3/uL (0.1-1.0); MONO % 5.5 % (3.0-9.0); NEUT # 7.8 10*3/uL (2.3-7.9); NEUT % 71.5 % (47.0-73.0); PLATELET COUNT AUTOMATED 361 10*3/uL (130-400); RED BLOOD COUNT 3.45 10*6/uL (4.10-5.10); RED CELL DISTRI WIDTH 15.5 % (0-14.5); WHITE BLOOD COUNT 10.8 10*3/uL (4.8-10.8)
[2020-04-05 07:10] LABS: INTERNATIONAL NORM RATIO 0.9 (2.0-3.5)
[2020-04-05 07:34] LABS: ALBUMIN 2.7 gm/dl (3.1-4.5); BUN 9 mg/dl (7-24); CHLORIDE 111 mmol/L (98-107); CREATININE 0.83 mg/dL (0.55-1.02); POTASSIUM 3.4 mmol/L (3.5-5.1); SGOT/AST 25 IU/L (3-35); SGPT/ALT 27 U/L (12-78); SODIUM 139 mmol/L (136-145); TRIGLYCERIDES 265 mg/dl (<150); VLDL CHOLESTEROL 53 mg/dL (6-40)
[2020-04-05 07:42] LABS: ALKALINE PHOSPHATASE 83 U/L (45-117); CHOLESTEROL 144 mg/dL (<200); HDL CHOLESTEROL 43 mg/dl (40-60); LDL CHOLESTEROL 48 mg/dL (9-159); TOTAL PROTEIN 5.9 gm/dL (6.4-8.2)
[2020-04-05 08:00] VITALS: BP 138/89
--- NOTE | 2020-04-05 08:21 | NUR ---
PT COMPLAIN OF ABDOMINAL PAIN 9/10, NAUSEA AND A HEADACHE. MORPHINE AND ZOFRAN GIVEN AT THIS TIME. WILL MONITOR FOR EFFECTIVENESS
--- NOTE | 2020-04-05 08:54 | NUR ---
PT STATES ZOFRAN EFFECTIVE AT THIS TIME, MORPHINE "HELPED SOME". WILL CONTINUE TO MONITIR
--- NOTE | 2020-04-05 09:09 | NUR ---
PHYSICAL THERAPY Nursing screen received. Patient admitted for abdominal pain. Recommend skilled PT evaluation if decline in functional status presents. Thank you. Amada Romano,PT,DPT
--- NOTE | 2020-04-05 09:41 | NUR ---
Nursing screen received and chart reviewed. Patient admitted for abdominal pain. If patient has a decline in ADLs, transfers or functional mobility please send OT orders. Thank you. Marichuy Salinas OTR/L
--- NOTE | 2020-04-05 09:48 | NUR ---
DR. GARCIA IN TO SEE PATIENT
--- NOTE | 2020-04-05 09:55 | NUR ---
TYLENOL GIVEN FOR HEADACHE
--- NOTE | 2020-04-05 09:59 | NUR ---
DR. CHAVARRIA OFFICE NOTIFIED OF NEW CONSULT, WILL NOTIFY PHYSICIAN
[2020-04-05 12:00] VITALS: BP 117/74
--- NOTE | 2020-04-05 12:23 | NUR ---
Car Carder in to talk to patient. Patient states lives at HOME with BOYFRIEND. There are FEW steps in the home. [facility]ician[facility] Home health services: NONE Patient's level of ADLs: INDEPENDENT Patient has working utilities: YES DME: NONE Follow-up physician's appointment after d/c: WILL BE MADE BY HOSPITALIST NURSE DIRECTOR ON DISCHARGE Does patient want to access PORTAL?: NO Discharge plan PT LIVES AT HOME WITH HER BOYFRIEND AND IS INDEPENDENT IN HER CARE. DENIES SHE WILL HAVE ANY NEEDS ON DISCHARGE. PLANS TO RETURN HOME WHEN MEDICALLY STABLE. WILL CONTINUE TO FOLLOW. STATES I WILL HAVE A RIDE HOME.. GENI JOHNSON
--- NOTE | 2020-04-05 15:54 | NUR ---
VARIFIED WITH DR. MILTON THAT PATIENT SHOULD BE ON ZOSYN, AND TO D/C KEVIN AND JAVIER THAT DR. CHAVARRIA ORDERED.
[2020-04-05 16:00] VITALS: BP 127/73
--- NOTE | 2020-04-05 18:15 | NUR ---
PT STATES PAIN IN STOMACH 04/23, NORCO GIVEN. WILL MONITOR FOR EFFECTIVENESS
[2020-04-05 20:00] VITALS: BP 134/78
[2020-04-06] VITALS: BP 140/90
[2020-04-06 06:10] LABS: ALBUMIN 2.8 gm/dl (3.1-4.5); ALKALINE PHOSPHATASE 89 U/L (45-117); BUN 4 mg/dl (7-24); CHLORIDE 112 mmol/L (98-107); CREATININE 0.73 mg/dL (0.55-1.02); POTASSIUM 3.3 mmol/L (3.5-5.1); SGOT/AST 25 IU/L (3-35); SGPT/ALT 33 U/L (12-78); SODIUM 141 mmol/L (136-145); TOTAL PROTEIN 6.1 gm/dL (6.4-8.2)
[2020-04-06 06:15] LABS: BASO % 0.4 % (0.0-1.0); EOS # 0.4 10*3/uL (0.0-0.4); EOS % 3.7 % (1.0-4.0); HEMATOCRIT 31.8 % (37.0-47.0); LYMPH # 2.7 10*3/uL (1.3-4.4); LYMPH % 26.1 % (27.0-41.0); MEAN CELL VOLUME 90.9 fl (81.0-99.0); MEAN CORPUSCULAR HGB 30.3 pg (27.0-31.0); MEAN CORPUSCULAR HGB CONC 33.3 g/dl (33.0-37.0); MEAN PLATELET VOLUME 9.6 fl (9.6-12.3); MONO # 0.7 10*3/uL (0.1-1.0); MONO % 6.8 % (3.0-9.0); NEUT # 6.5 10*3/uL (2.3-7.9); NEUT % 62.7 % (47.0-73.0); PLATELET COUNT AUTOMATED 404 10*3/uL (130-400); RED CELL DISTRI WIDTH 15.4 % (0-14.5); WHITE BLOOD COUNT 10.3 10*3/uL (4.8-10.8)
[2020-04-06 08:00] VITALS: BP 125/84
--- NOTE | 2020-04-06 08:35 | NUR ---
PT MEDICATED WITH PRN NORCO FOR C/O ABDOMINAL PAIN. PT RATES PAIN 6/1O. WILL MONITOR.
--- NOTE | 2020-04-06 09:15 | NUR ---
PRN NORCO EFFECTIVE PER PT.
--- NOTE | 2020-04-06 10:00 | NUR ---
DR. CHAVARRIA TO THE [facility] TO SEE PATIENT. DIET ADVANCED.
--- NOTE | 2020-04-06 11:57 | NUR ---
CONTINUES TO DENY NEEDS AT HOME ON DISCHARGE. PLANS TO RETURN HOME WHEN MEDICALLY STABLE. WILL CONTINUE TO FOLLOW.
[2020-04-06 12:00] VITALS: BP 129/77
--- NOTE | 2020-04-06 13:23 | NUR ---
PT MEDICATED WITH PRN MORPHINE FOR C/O ABDOMINAL PAIN. PT RATES PAIN 05/24. WILL MONITOR.
--- NOTE | 2020-04-06 14:00 | NUR ---
PRN MORPHINE EFFECTIVE PER PT.
[2020-04-06 16:00] VITALS: BP 135/88
--- NOTE | 2020-04-06 18:09 | NUR ---
PT MEDICATED WITH PRN ZOFRAN FOR C/O NAUSEA. WILL MONITOR.
[2020-04-06 20:00] VITALS: BP 139/74
--- NOTE | 2020-04-06 20:26 | NUR ---
PT REQUESTED AND RECEIVED IV MORPHINE FOR C/O ABD PAIN RATED 5/10. WILL MONITOR EFFECTIVENESS. CALL LIGHT IN REACH.
--- NOTE | 2020-04-06 21:15 | NUR ---
EARLIER MEDICATION EFFECTIVE PER PT. WILL MONITOR. CALL LIGHT IN REACH.
--- NOTE | 2020-04-06 22:42 | NUR ---
PT REQUESTED AND RECEIVED PO NORCO PER PRN ORDER FOR C/O PAIN IN ABDOMEN RATED 5/10. WILL MONITOR EFFECTIVENESS. CALL LIGHT IN REACH.
--- NOTE | 2020-04-06 23:30 | NUR ---
EARLIER NORCO APPEARS EFFECTIVE. PT ASLEEP IN BED. RESPIRATIONS EASY. NO S/S OF DISTRESS NOTED. WILL CONTINUE TO MONITOR. CALL LIGHT IN REACH.
[2020-04-07] VITALS: BP 139/79
--- NOTE | 2020-04-07 05:50 | NUR ---
PO NORCO ADMINISTERED PER PRN ORDER FOR C/O PAIN IN ABDOMEN RATED 5/10. WILL MONITOR EFFECTIVENESS. CALL LIGHT IN REACH.
--- NOTE | 2020-04-07 06:45 | NUR ---
EARLIER MEDICATION APPEARS EFFECTIVE. PT ASLEEP. NO S/S OF DISTRESS NOTED. WILL MONITOR. CALL LIGHT IN REACH.
--- NOTE | 2020-04-07 07:03 | NUR ---
NOTIFIED OF + STOOL CX CAMPYLOBACTER.
[2020-04-07 08:00] VITALS: BP 147/93
--- NOTE | 2020-04-07 11:34 | NUR ---
PT CONTINUES TO DENY SHE WILL HAVE NEEDS ON DISCHARGE. WILL CONTINUE TO FOLLOW.
[2020-04-07] MEDS ORDERED: CIPROFLOXACIN750 MG PO (11:47)
--- NOTE | 2020-04-07 12:15 | NUR ---
PT DISCHARGED HOME AT THIS TIME. PRESCRIPTIONS AND FOLLOW UP CARE DISCUSSED. HEPLOCK REMOVED. PT REFUSED WHEELCHAIR AND AMBULATED OFF THE FLOOR WITH HER BOYFRIEND.
== END 2020-04-07 12:15 | disposition home or self-care (01) ==
LOC: ED 19:23 → 5E 21:49 → EDHOLD 21:49 → 5E 21:49
PROVIDERS: Emergency Medicine; Internal Medicine; Student in an Organized Health Care Education/Training Program; ADMIT Emergency Medicine
DX: A41.9 Sepsis, unspecified organism (principal); K51.00 Ulcerative (chronic) pancolitis without complications; E87.8 Other disorders of electrolyte and fluid balance, not elsewhere classified; E87.6 Hypokalemia; R73.9 Hyperglycemia, unspecified; D72.829 Elevated white blood cell count, unspecified; D50.9 Iron deficiency anemia, unspecified; E55.9 Vitamin D deficiency, unspecified; E43 Unspecified severe protein-calorie malnutrition; R11.2 Nausea with vomiting, unspecified

== ENCOUNTER → 2020-05-13 | Outpatient (CLI) | payer OTHER ==
[~2020-05-13] MED LIST changes: +CIPROFLOXACIN750 MG PO
== END | disposition home or self-care (01) ==
LOC: RESCLI 04:54
DX: Z12.4 Encounter for screening for malignant neoplasm of cervix (principal); Z12.31 Encounter for screening mammogram for malignant neoplasm of breast; K21.0 Gastro-esophageal reflux disease with esophagitis; E78.2 Mixed hyperlipidemia; N92.0 Excessive and frequent menstruation with regular cycle; D50.8 Other iron deficiency anemias

== ENCOUNTER 2020-09-14 21:09 | Observation (INO) | payer OTHER ==
[~2020-09-14] VITALS: Ht 154.9 cm; Wt 75.7 kg
[2020-09-14 21:19] VITALS: BP 126/76
[2020-09-14 21:27] LABS: BASO % 0.3 % (0.0-1.0); EOS # 0.2 10*3/uL (0.0-0.4); EOS % 1.7 % (1.0-4.0); HEMATOCRIT 38.8 % (37.0-47.0); LYMPH # 3.2 10*3/uL (1.3-4.4); LYMPH % 27.1 % (27.0-41.0); MEAN CELL VOLUME 88.4 fl (81.0-99.0); MEAN CORPUSCULAR HGB 28.7 pg (27.0-31.0); MEAN CORPUSCULAR HGB CONC 32.5 g/dl (33.0-37.0); MEAN PLATELET VOLUME 9.2 fl (9.6-12.3); MONO # 0.7 10*3/uL (0.1-1.0); MONO % 5.9 % (3.0-9.0); NEUT # 7.6 10*3/uL (2.3-7.9); NEUT % 64.6 % (47.0-73.0); PLATELET COUNT AUTOMATED 599 10*3/uL (130-400); RED BLOOD COUNT 4.39 10*6/uL (4.10-5.10); RED CELL DISTRI WIDTH 14.4 % (0-14.5); WHITE BLOOD COUNT 11.8 10*3/uL (4.8-10.8)
[2020-09-14 21:42] LABS: ACT PARTIAL THROMBO TIME 28.5 SECONDS (20.0-32.1)
[2020-09-14 21:49] LABS: ALBUMIN 3.9 gm/dl (3.1-4.5); ALKALINE PHOSPHATASE 147 U/L (45-117); BUN 15 mg/dl (7-24); CHLORIDE 103 mmol/L (98-107); CREATININE 0.85 mg/dL (0.55-1.02); POTASSIUM 3.4 mmol/L (3.5-5.1); SGOT/AST 32 IU/L (3-35); SGPT/ALT 62 U/L (12-78); SODIUM 136 mmol/L (136-145); TOTAL PROTEIN 8.4 gm/dL (6.4-8.2)
[2020-09-14 21:53] LABS: TROPONIN I < 0.015 ng/ml (<0.045)
[2020-09-14 22:05] LABS: BILIRUBIN Negative (Negative); BLOOD Trace-Lysed (Negative); CLARITY Clear (Clear); COLOR Yellow (Yellow); GLUCOSE Negative (Negative); KETONE Negative (Negative); LEUKO ESTERASE Negative (Negative); NITRITE Negative (Negative); SPECIFIC GRAVITY 1.015 (1.001-1.030); UROBILINOGEN 0.2 E.U./dl (0.0-1.0)
[2020-09-14 22:25] LABS: EPITHELIAL CELLS 16-20
[2020-09-15 00:12] VITALS: BP 133/62
--- NOTE | 2020-09-15 03:00 | NUR ---
0300 IV AT THIS TIME WAS NOTED TO BE INFILTRATED SITE WITH MILD REDNESS. IV ANTIBIOTIC NOT INFUSING. IV REMOVED INTACT . EXPLAINED WE HAVE TO START A NEW IV. PT UP TO BATHROOM GAIT STEADY. KIERA MONTAÑO RN.
[2020-09-15 03:15] LABS: BASO % 0.3 % (0.0-1.0); EOS # 0.2 10*3/uL (0.0-0.4); EOS % 2.2 % (1.0-4.0); HEMATOCRIT 34.3 % (37.0-47.0); LYMPH # 4.2 10*3/uL (1.3-4.4); LYMPH % 37.9 % (27.0-41.0); MEAN CELL VOLUME 88.6 fl (81.0-99.0); MEAN CORPUSCULAR HGB 28.4 pg (27.0-31.0); MEAN CORPUSCULAR HGB CONC 32.1 g/dl (33.0-37.0); MEAN PLATELET VOLUME 8.7 fl (9.6-12.3); MONO # 0.8 10*3/uL (0.1-1.0); MONO % 7.1 % (3.0-9.0); NEUT # 5.8 10*3/uL (2.3-7.9); NEUT % 52.2 % (47.0-73.0); PLATELET COUNT AUTOMATED 493 10*3/uL (130-400); RED BLOOD COUNT 3.87 10*6/uL (4.10-5.10); RED CELL DISTRI WIDTH 14.4 % (0-14.5); WHITE BLOOD COUNT 11.2 10*3/uL (4.8-10.8)
[2020-09-15 03:40] LABS: BUN 15 mg/dl (7-24); CHLORIDE 104 mmol/L (98-107); CREATININE 0.78 mg/dL (0.55-1.02); POTASSIUM 3.4 mmol/L (3.5-5.1); SODIUM 139 mmol/L (136-145)
[2020-09-15 07:53] VITALS: BP 124/83
--- NOTE | 2020-09-15 07:54 | NUR ---
MEDICATED WITH MORPHINE ORDERED FOR C/O PAIN.
[2020-09-15 07:57] LABS: VITAMIN D, 25-HYDROXY 13.1 ng/mL (30-100)
--- NOTE | 2020-09-15 08:16 | NUR ---
CALLED DR BERRY ANSWERING SERVICE. THEY WERE NOTIFIED OF CONSULT.
--- NOTE | 2020-09-15 08:29 | NUR ---
PAIN IS BETTER AFTER MORPHINE. STATES SHE IS GOING TO TRY AND [facility]. CALL LIGHT IN REACH. ENCOURAGED TO USE CALL LIGHT IF SHE NEEDS ANYTHING.
--- NOTE | 2020-09-15 08:47 | NUR ---
SPOKE WITH DR DELVALLE REGARDING CONSULT. ORDERS FOR CLEAR LIQUID DIET GIVEN.
--- NOTE | 2020-09-15 11:18 | NUR ---
RESTING IN BED. CALL LIGHT IN REACH.
--- NOTE | 2020-09-15 12:15 | NUR ---
Time: 1214 A 45 year old FEMALE admitted to under services of VALARIE JEFFERS DO, Pt. arrived via bed from ER. Chief complaint ABDOMINAL PAIN : . AIDEN OJEDA
[2020-09-15 12:40] VITALS: BP 136/70
[2020-09-15 16:00] VITALS: BP 115/54
--- NOTE | 2020-09-15 16:32 | NUR ---
PT MEDICATED WITH PRN NORCO FOR C/O BILATERAL LOWER QUAD PAIN. PT RATES PAIN /. WILL MONITOR.
--- NOTE | 2020-09-15 17:15 | NUR ---
PRN NORCO EFFECTIVE PER PT.
[2020-09-15 20:00] VITALS: BP 102/88
--- NOTE | 2020-09-15 20:00 | NUR ---
PATIENT RESTING IN BED WATCHING TV. REQUESTING MORPHINE AROUND 9PM. PATIENT WAS INFORMED THAT THIS RN WILL TRY TO BE IN WITH HER MORPHINE CLOSE TO 9PM POSSIBLE. BED IN LOWEST POSITION, CALL LIGHT IN REACH
--- NOTE | 2020-09-15 21:17 | NUR ---
PATIENT REQUESTED MORPHINE FOR ABDOMINAL PAIN RATING AN 8/10. ATTEMPTED TO GIVE AND IV SITE EDEMATOUS AND PAINFUL. PATIENT WOULD LIKE TO WAIT TO RECIEVE NEW IV AT THIS TIME.
[2020-09-16] VITALS: BP 128/47
[2020-09-16 06:31] LABS: BASO % 0.1 % (0.0-1.0); EOS # 0.3 10*3/uL (0.0-0.4); EOS % 3.5 % (1.0-4.0); HEMATOCRIT 33.9 % (37.0-47.0); LYMPH # 2.7 10*3/uL (1.3-4.4); LYMPH % 34.5 % (27.0-41.0); MEAN CELL VOLUME 88.1 fl (81.0-99.0); MEAN CORPUSCULAR HGB 28.8 pg (27.0-31.0); MEAN CORPUSCULAR HGB CONC 32.7 g/dl (33.0-37.0); MEAN PLATELET VOLUME 9.3 fl (9.6-12.3); MONO # 0.6 10*3/uL (0.1-1.0); MONO % 7.6 % (3.0-9.0); NEUT # 4.3 10*3/uL (2.3-7.9); PLATELET COUNT AUTOMATED 518 10*3/uL (130-400); RED BLOOD COUNT 3.85 10*6/uL (4.10-5.10); RED CELL DISTRI WIDTH 14.2 % (0-14.5); WHITE BLOOD COUNT 7.9 10*3/uL (4.8-10.8)
[2020-09-16 06:57] LABS: BUN 8 mg/dl (7-24); CHLORIDE 106 mmol/L (98-107); CREATININE 0.59 mg/dL (0.55-1.02); POTASSIUM 3.5 mmol/L (3.5-5.1); SODIUM 137 mmol/L (136-145)
--- NOTE | 2020-09-16 07:58 | NUR ---
MORPHINE GIVEN PER PRN ORDER FOR C/O ABD PAIN. RATES PAIN 8/10. WILL MONITOR EFFECTIVENESS.
[2020-09-16 08:00] VITALS: BP 124/71
--- NOTE | 2020-09-16 08:58 | NUR ---
MORPHINE RELIEVING PAIN PER PT. WILL CONTINUE TO MONITOR.
--- NOTE | 2020-09-16 09:00 | NUR ---
Rental Sales Agent in to talk to patient. Patient states lives at home with her boyfriend. There are 11 steps in the home. [facility] Home health services: none Patient's level of ADLs: INDEPENDENT Patient has working utilities: yes DME: none Follow-up physician's appointment after d/c: will be made by the hospitalist nurse director upon discharge Does patient want to access PORTAL?: no Discharge plan discussed with patient. She lives at home with her boyfriend. She is independent in her ADLs and ambulation. Discussed home health care services and she declines. CM will continue to follow for any discharge planning needs. When medically stable she will be discharged to home. She states she may need transportation on discharge. Discussed the possibility of her insurance providing transportation on discharge. She is agreeable if she is not able to find someone. NIKOLAS DIXON
--- NOTE | 2020-09-16 11:47 | NUR ---
IF PATIENT NEEDS TRANSPORTATION PLEASE CALL INSURANCE AT [phone].
[2020-09-16 12:00] VITALS: BP 108/60
--- NOTE | 2020-09-16 12:07 | NUR ---
PT MEDICATED WITH PO NORCO PER PRN ORDER FOR C/O ABD PAIN. RATES PAIN 03/24. WILL MONITOR EFFECTIVENESS.
--- NOTE | 2020-09-16 13:07 | NUR ---
NORCO EFFECTIVE PER PT. WILL CONTINUE TO MONITOR.
[2020-09-16] MEDS ORDERED: VITAMIN D350 MC2 PO (13:22)
[2020-09-16] MEDS ORDERED: CIPRO500 MG PO (13:22)
[2020-09-16] MEDS ORDERED: ZOFRAN4 MG PO (13:22)
[2020-09-16] MEDS ORDERED: PHARMASSURE V500 MCG PO (13:22)
[2020-09-16] MEDS ORDERED: FLAGYL500 MG PO (13:22)
--- NOTE | 2020-09-16 15:47 | NUR ---
Discharge instructions reviewed with patient/family. Patient receptive and verbalizes understanding. Follow-up care arranged. Written instructions given to patient/family. ASHWINI JULIAN.
== END 2020-09-16 15:47 | disposition home or self-care (01) ==
LOC: ED 21:09 → EDHOLD 09-15 01:16 → 4E 09-15 01:16
PROVIDERS: Emergency Medicine; Internal Medicine; Nurse Practitioner; ADMIT Internal Medicine; ATTEND Internal Medicine
DX: A41.9 Sepsis, unspecified organism (principal); K52.9 Noninfective gastroenteritis and colitis, unspecified; K57.92 Diverticulitis of intestine, part unspecified, without perforation or abscess without bleeding; E87.6 Hypokalemia; D50.9 Iron deficiency anemia, unspecified; D72.829 Elevated white blood cell count, unspecified; R00.0 Tachycardia, unspecified; R07.89 Other chest pain; E53.8 Deficiency of other specified B group vitamins; D64.9 Anemia, unspecified; R74.8 Abnormal levels of other serum enzymes; I10 Essential (primary) hypertension; K21.9 Gastro-esophageal reflux disease without esophagitis; E78.5 Hyperlipidemia, unspecified; E55.9 Vitamin D deficiency, unspecified

== ENCOUNTER 2020-12-05 14:12 | Observation (INO) | payer OTHER ==
[~2020-12-05] VITALS: Ht 154.9 cm; Wt 75.0 kg
[~2020-12-05 14:12] MED LIST changes: +PHARMASSURE V500 MCG PO; +VITAMIN D350 MC2 PO; +ZOFRAN4 MG PO
[2020-12-05 14:27] VITALS: BP 145/87
[2020-12-05 14:52] LABS: BILIRUBIN Negative (Negative); BLOOD Trace-Lysed (Negative); CLARITY Clear (Clear); COLOR Yellow (Yellow); GLUCOSE Negative (Negative); KETONE Negative (Negative); LEUKO ESTERASE Negative (Negative); NITRITE Negative (Negative); SPECIFIC GRAVITY 1.015 (1.001-1.030); UROBILINOGEN 0.2 E.U./dl (0.0-1.0)
[2020-12-05 14:58] LABS: BASO # 0.1 10*3/uL (0.0-0.1); BASO % 0.4 % (0.0-1.0); EOS # 0.3 10*3/uL (0.0-0.4); EOS % 2.8 % (1.0-4.0); HEMATOCRIT 42.2 % (37.0-47.0); MEAN CELL VOLUME 88.8 fl (81.0-99.0); MEAN CORPUSCULAR HGB 28.6 pg (27.0-31.0); MEAN CORPUSCULAR HGB CONC 32.2 g/dl (33.0-37.0); MEAN PLATELET VOLUME 9.5 fl (9.6-12.3); MONO # 0.8 10*3/uL (0.1-1.0); MONO % 6.9 % (3.0-9.0); NEUT # 6.8 10*3/uL (2.3-7.9); NEUT % 56.5 % (47.0-73.0); PLATELET COUNT AUTOMATED 521 10*3/uL (130-400); RED BLOOD COUNT 4.75 10*6/uL (4.10-5.10); RED CELL DISTRI WIDTH 15.4 % (0-14.5); WHITE BLOOD COUNT 12.1 10*3/uL (4.8-10.8)
[2020-12-05 15:07] LABS: BACTERIA TRACE; RBC 0-2 rbc/hpf (0-2)
[2020-12-05 15:09] LABS: ACT PARTIAL THROMBO TIME 26.3 SECONDS (20.0-32.1); INTERNATIONAL NORM RATIO 0.9 (2.0-3.5)
[2020-12-05 15:12] LABS: ALBUMIN 4.2 gm/dl (3.1-4.5); ALKALINE PHOSPHATASE 124 U/L (45-117); BUN 17 mg/dl (7-24); CHLORIDE 103 mmol/L (98-107); CREATININE 0.94 mg/dL (0.55-1.02); LIPASE 87 U/L (73-393); POTASSIUM 4.2 mmol/L (3.5-5.1); SGOT/AST 44 IU/L (3-35); SGPT/ALT 57 U/L (12-78); SODIUM 136 mmol/L (136-145); TOTAL PROTEIN 8.5 gm/dL (6.4-8.2)
[2020-12-05 17:53] VITALS: BP 113/55
[2020-12-05 20:00] VITALS: BP 119/62
[2020-12-06] VITALS: BP 114/59
[2020-12-06 06:45] LABS: BASO % 0.4 % (0.0-1.0); EOS # 0.4 10*3/uL (0.0-0.4); EOS % 3.7 % (1.0-4.0); HEMATOCRIT 35.8 % (37.0-47.0); LYMPH # 3.4 10*3/uL (1.3-4.4); LYMPH % 35.8 % (27.0-41.0); MEAN CELL VOLUME 89.9 fl (81.0-99.0); MEAN CORPUSCULAR HGB 28.6 pg (27.0-31.0); MEAN CORPUSCULAR HGB CONC 31.8 g/dl (33.0-37.0); MEAN PLATELET VOLUME 9.6 fl (9.6-12.3); MONO # 0.7 10*3/uL (0.1-1.0); MONO % 7.2 % (3.0-9.0); NEUT % 52.6 % (47.0-73.0); PLATELET COUNT AUTOMATED 491 10*3/uL (130-400); RED BLOOD COUNT 3.98 10*6/uL (4.10-5.10); RED CELL DISTRI WIDTH 15.7 % (0-14.5); WHITE BLOOD COUNT 9.5 10*3/uL (4.8-10.8)
[2020-12-06 06:52] LABS: ALBUMIN 3.1 gm/dl (3.1-4.5); ALKALINE PHOSPHATASE 89 U/L (45-117); BUN 13 mg/dl (7-24); CHLORIDE 107 mmol/L (98-107); CHOLESTEROL 171 mg/dL (<200); CREATININE 0.77 mg/dL (0.55-1.02); HDL CHOLESTEROL 39 mg/dl (40-60); LDL CHOLESTEROL 92 mg/dL (9-159); POTASSIUM 3.9 mmol/L (3.5-5.1); SGOT/AST 26 IU/L (3-35); SGPT/ALT 44 U/L (12-78); SODIUM 137 mmol/L (136-145); TOTAL PROTEIN 6.6 gm/dL (6.4-8.2); TRIGLYCERIDES 199 mg/dl (<150); VLDL CHOLESTEROL 40 mg/dL (6-40)
[2020-12-06 08:00] VITALS: BP 120/92
[2020-12-06] MEDS ORDERED: FLAGYL500 MG PO ×2 (10:59)
[2020-12-06] MEDS ORDERED: CIPRO500 MG PO ×2 (10:59)
[2020-12-06 12:00] VITALS: BP 128/59
== END 2020-12-06 13:40 | disposition home or self-care (01) ==
LOC: ED 14:12 → 5E 16:46 → EDHOLD 16:46 → 5E 17:26
PROVIDERS: Emergency Medicine; Internal Medicine; ADMIT Emergency Medicine; ATTEND Emergency Medicine
DX: K52.9 Noninfective gastroenteritis and colitis, unspecified (principal); A41.9 Sepsis, unspecified organism; R65.20 Severe sepsis without septic shock; E87.2 Acidosis; I10 Essential (primary) hypertension; K21.9 Gastro-esophageal reflux disease without esophagitis; E66.01 Morbid (severe) obesity due to excess calories; E78.5 Hyperlipidemia, unspecified; D72.829 Elevated white blood cell count, unspecified; E83.41 Hypermagnesemia; R31.29 Other microscopic hematuria; R74.8 Abnormal levels of other serum enzymes; R74.01 Elevation of levels of liver transaminase levels; F17.200 Nicotine dependence, unspecified, uncomplicated; Z68.31 Body mass index [BMI] 31.0-31.9, adult

== ENCOUNTER 2020-12-09 12:56 | Emergency (ER) | payer OTHER ==
[~2020-12-09] VITALS: Ht 154.9 cm; Wt 76.2 kg
[2020-12-09 14:34] LABS: BASO # 0.1 10*3/uL (0.0-0.1); BASO % 0.5 % (0.0-1.0); EOS # 0.2 10*3/uL (0.0-0.4); EOS % 1.7 % (1.0-4.0); HEMATOCRIT 39.7 % (37.0-47.0); LYMPH # 4.5 10*3/uL (1.3-4.4); LYMPH % 34.6 % (27.0-41.0); MEAN CELL VOLUME 87.6 fl (81.0-99.0); MEAN CORPUSCULAR HGB 28.9 pg (27.0-31.0); MEAN PLATELET VOLUME 9.5 fl (9.6-12.3); MONO # 0.9 10*3/uL (0.1-1.0); MONO % 7.3 % (3.0-9.0); NEUT # 7.2 10*3/uL (2.3-7.9); NEUT % 55.5 % (47.0-73.0); PLATELET COUNT AUTOMATED 551 10*3/uL (130-400); RED BLOOD COUNT 4.53 10*6/uL (4.10-5.10); RED CELL DISTRI WIDTH 15.2 % (0-14.5)
[2020-12-09 14:45] LABS: BILIRUBIN Negative (Negative); BLOOD Trace-Lysed (Negative); CLARITY Clear (Clear); COLOR Yellow (Yellow); GLUCOSE Negative (Negative); KETONE Negative (Negative); LEUKO ESTERASE Negative (Negative); NITRITE Negative (Negative); UROBILINOGEN 0.2 E.U./dl (0.0-1.0)
[2020-12-09 14:51] LABS: ALBUMIN 3.7 gm/dl (3.1-4.5); CREATININE 1.31 mg/dL (0.55-1.02); POTASSIUM 4.1 mmol/L (3.5-5.1); TOTAL PROTEIN 7.5 gm/dL (6.4-8.2)
[2020-12-09 15:09] LABS: BACTERIA 1+; EPITHELIAL CELLS 31-40; RBC 0-2 rbc/hpf (0-2); WBC 0-2 wbc/hpf (0-5)
[2020-12-09] MEDS ORDERED: HYDROCODONE-AC1 EAC1 PO (19:35)
[2020-12-09 19:58] VITALS: BP 138/62
== END 2020-12-09 20:18 | disposition home or self-care (01) ==
LOC: ED 12:56
PROVIDERS: Physician Assistant
DX: K57.32 Diverticulitis of large intestine without perforation or abscess without bleeding (principal); I10 Essential (primary) hypertension; F17.200 Nicotine dependence, unspecified, uncomplicated; Z79.899 Other long term (current) drug therapy; Z98.890 Other specified postprocedural states

== ENCOUNTER → 2020-12-22 | Outpatient (CLI) | payer OTHER ==
[~2020-12-22] MED LIST changes: +HYDROCODONE-AC1 EAC1 PO
== END | disposition home or self-care (01) ==
LOC: COVID19 09:58
PROVIDERS: ATTEND Surgery
DX: Z01.812 Encounter for preprocedural laboratory examination (principal); Z20.822 Contact with and (suspected) exposure to COVID-19

== ENCOUNTER → 2020-12-27 | Day surgery (SDC) | payer OTHER ==
[~2020-12-27] VITALS: Ht 154.9 cm; Wt 77.1 kg
[2020-12-27 06:49] VITALS: BP 152/89
[2020-12-27 08:02] VITALS: BP 140/81
[2020-12-27 08:17] VITALS: BP 135/91
[2020-12-27 08:33] VITALS: BP 150/72
== END ==
LOC: SDC 12-23 08:00
PROVIDERS: ATTEND Surgery
DX: K92.1 Melena (principal); K52.9 Noninfective gastroenteritis and colitis, unspecified; K29.50 Unspecified chronic gastritis without bleeding; I10 Essential (primary) hypertension; K21.9 Gastro-esophageal reflux disease without esophagitis; E78.5 Hyperlipidemia, unspecified; K57.30 Diverticulosis of large intestine without perforation or abscess without bleeding; Z79.899 Other long term (current) drug therapy

== ENCOUNTER 2021-05-21 13:06 | Emergency (ER) | payer OTHER ==
[~2021-05-21] VITALS: Wt 74.8 kg
[2021-05-21 13:31] VITALS: BP 182/102
[2021-05-23] MEDS ORDERED: CEPHALEXIN500 M1 PO (11:42)
[2021-05-23] MEDS ORDERED: HYDROCODONE-AC1 EAC1 PO (12:00)
== END 2021-05-21 15:12 | disposition left against medical advice (07) ==
LOC: ED 13:06
DX: N64.4 Mastodynia (principal); N63.10 Unspecified lump in the right breast, unspecified quadrant; Z53.21 Procedure and treatment not carried out due to patient leaving prior to being seen by health care provider

== ENCOUNTER 2021-05-25 14:03 | Inpatient (IN) | payer OTHER ==
[~2021-05-25] VITALS: Ht 154.9 cm; Wt 71.2 kg
[~2021-05-25 14:03] MED LIST changes: +CEPHALEXIN500 M1 PO
[2021-05-25 16:00] LABS: BASO # 0.1 10*3/uL (0.0-0.1); BASO % 0.4 % (0.0-1.0); EOS # 0.1 10*3/uL (0.0-0.4); EOS % 1.1 % (1.0-4.0); HEMATOCRIT 34.5 % (37.0-47.0); MEAN CELL VOLUME 85.4 fl (81.0-99.0); MEAN CORPUSCULAR HGB 28.5 pg (27.0-31.0); MEAN CORPUSCULAR HGB CONC 33.3 g/dl (33.0-37.0); MEAN PLATELET VOLUME 9.8 fl (9.6-12.3); MONO # 0.9 10*3/uL (0.1-1.0); NEUT # 8.4 10*3/uL (2.3-7.9); NEUT % 67.1 % (47.0-73.0); PLATELET COUNT AUTOMATED 565 10*3/uL (130-400); RED BLOOD COUNT 4.04 10*6/uL (4.10-5.10); RED CELL DISTRI WIDTH 15.1 % (0-14.5); WHITE BLOOD COUNT 12.5 10*3/uL (4.8-10.8)
[2021-05-25 16:15] LABS: ALBUMIN 3.4 gm/dl (3.1-4.5); ALKALINE PHOSPHATASE 139 U/L (45-117); BUN 12 mg/dl (7-24); CHLORIDE 102 mmol/L (98-107); CREATININE 0.58 mg/dL (0.55-1.02); POTASSIUM 3.5 mmol/L (3.5-5.1); SGOT/AST 30 IU/L (3-35); SGPT/ALT 35 U/L (12-78); SODIUM 134 mmol/L (136-145); TOTAL PROTEIN 7.7 gm/dL (6.4-8.2)
[2021-05-25 16:18] LABS: BETA-HCG, QUANT < 1.0 mIU/mL (1-3)
[2021-05-25] MEDS ORDERED: OMEPRAZOLE MAGN20 MG PO (18:01)
[2021-05-25 23:18] VITALS: BP 133/77
[2021-05-26] VITALS (10 sets, daily range): BP systolic 127–160; BP diastolic 65–99
[2021-05-26 06:00] LABS: ALBUMIN 3.1 gm/dl (3.1-4.5); ALKALINE PHOSPHATASE 132 U/L (45-117); BUN 14 mg/dl (7-24); CHLORIDE 103 mmol/L (98-107); CREATININE 0.59 mg/dL (0.55-1.02); POTASSIUM 3.5 mmol/L (3.5-5.1); SGOT/AST 19 IU/L (3-35); SGPT/ALT 30 U/L (12-78); SODIUM 134 mmol/L (136-145); TOTAL PROTEIN 7.1 gm/dL (6.4-8.2)
[2021-05-26 06:11] LABS: BASO % 0.2 % (0.0-1.0); EOS # 0.3 10*3/uL (0.0-0.4); EOS % 2.2 % (1.0-4.0); HEMATOCRIT 33.3 % (37.0-47.0); LYMPH # 2.9 10*3/uL (1.3-4.4); MEAN CELL VOLUME 85.4 fl (81.0-99.0); MEAN CORPUSCULAR HGB 27.9 pg (27.0-31.0); MEAN CORPUSCULAR HGB CONC 32.7 g/dl (33.0-37.0); MONO % 8.3 % (3.0-9.0); NEUT # 7.4 10*3/uL (2.3-7.9); PLATELET COUNT AUTOMATED 566 10*3/uL (130-400); RED CELL DISTRI WIDTH 14.7 % (0-14.5); WHITE BLOOD COUNT 11.5 10*3/uL (4.8-10.8)
[2021-05-27] VITALS: BP 128/77
[2021-05-27 05:17] LABS: BUN 11 mg/dl (7-24); CHLORIDE 105 mmol/L (98-107); CREATININE 0.53 mg/dL (0.55-1.02); POTASSIUM 3.6 mmol/L (3.5-5.1); SODIUM 137 mmol/L (136-145)
[2021-05-27 06:35] LABS: BASO % 0.3 % (0.0-1.0); EOS # 0.2 10*3/uL (0.0-0.4); EOS % 2.6 % (1.0-4.0); HEMATOCRIT 32.9 % (37.0-47.0); LYMPH % 34.2 % (27.0-41.0); MEAN CELL VOLUME 85.5 fl (81.0-99.0); MEAN CORPUSCULAR HGB 27.8 pg (27.0-31.0); MEAN CORPUSCULAR HGB CONC 32.5 g/dl (33.0-37.0); MEAN PLATELET VOLUME 10.1 fl (9.6-12.3); MONO # 0.6 10*3/uL (0.1-1.0); MONO % 7.1 % (3.0-9.0); NEUT # 4.9 10*3/uL (2.3-7.9); NEUT % 55.5 % (47.0-73.0); PLATELET COUNT AUTOMATED 597 10*3/uL (130-400); RED BLOOD COUNT 3.85 10*6/uL (4.10-5.10); RED CELL DISTRI WIDTH 14.7 % (0-14.5); WHITE BLOOD COUNT 8.8 10*3/uL (4.8-10.8)
[2021-05-27 08:00] VITALS: BP 145/88
[2021-05-27] MEDS ORDERED: COL-RITE100 M1 PO (09:29)
[2021-05-27] MEDS ORDERED: PERCOCET 5-3251 EACH PO (09:29)
[2021-05-27] MEDS ORDERED: ZOFRAN4 MG PO (09:29)
[2021-05-27] MEDS ORDERED: DOXYCYCLINE100 MG PO (09:29)
[2021-05-27 12:00] VITALS: BP 132/81
== END 2021-05-27 14:27 | disposition home or self-care (01) | DRG 363 ==
LOC: ED 14:03 → EDHOLD 15:37 → 4E 15:37 → EDHOLD 18:19 → 4E 05-26 15:01
PROVIDERS: Emergency Medicine; Family Medicine; Internal Medicine; ADMIT Student in an Organized Health Care Education/Training Program; ATTEND Student in an Organized Health Care Education/Training Program
PROC: 0HBT0ZX Excision of Right Breast, Open Approach, Diagnostic (ICD-10-PCS; principal; 2021-05-26)
PROC: 0J960ZZ Drainage of Chest Subcutaneous Tissue and Fascia, Open Approach (ICD-10-PCS; 2021-05-26)
DX: N61.1 Abscess of the breast and nipple (principal); K57.90 Diverticulosis of intestine, part unspecified, without perforation or abscess without bleeding; E87.1 Hypo-osmolality and hyponatremia; K76.0 Fatty (change of) liver, not elsewhere classified; I10 Essential (primary) hypertension; K21.9 Gastro-esophageal reflux disease without esophagitis; F17.210 Nicotine dependence, cigarettes, uncomplicated; E78.5 Hyperlipidemia, unspecified; D64.9 Anemia, unspecified; D47.3 Essential (hemorrhagic) thrombocythemia; D72.829 Elevated white blood cell count, unspecified; R79.82 Elevated C-reactive protein (CRP); R74.8 Abnormal levels of other serum enzymes; Z98.891 History of uterine scar from previous surgery; Z79.899 Other long term (current) drug therapy

== ENCOUNTER → 2021-05-31 | Outpatient (CLI) | payer OTHER ==
[~2021-05-31] MED LIST changes: +COL-RITE100 M1 PO; +DOXYCYCLINE100 MG PO; +OMEPRAZOLE MAGN20 MG PO; +PERCOCET 5-3251 EACH PO
== END ==
LOC: WOUNDCARE 01:51
PROVIDERS: ATTEND Surgery
DX: N61.1 Abscess of the breast and nipple (principal); K21.9 Gastro-esophageal reflux disease without esophagitis; E78.00 Pure hypercholesterolemia, unspecified; I10 Essential (primary) hypertension; F17.210 Nicotine dependence, cigarettes, uncomplicated

== ENCOUNTER → 2021-06-07 | Outpatient (CLI) | payer OTHER | LOC: WOUNDCARE 01:26 | PROVIDERS: ATTEND Surgery | DX: N61.1 Abscess of the breast and nipple (principal); K21.9 Gastro-esophageal reflux disease without esophagitis; E78.00 Pure hypercholesterolemia, unspecified; I10 Essential (primary) hypertension; F17.210 Nicotine dependence, cigarettes, uncomplicated ==

== ENCOUNTER → 2021-06-22 | Outpatient (CLI) | payer OTHER | LOC: WOUNDCARE 15:10 | PROVIDERS: ATTEND Nurse Practitioner | DX: N61.1 Abscess of the breast and nipple (principal); K21.9 Gastro-esophageal reflux disease without esophagitis; I10 Essential (primary) hypertension; E78.00 Pure hypercholesterolemia, unspecified; F17.210 Nicotine dependence, cigarettes, uncomplicated ==

== ENCOUNTER 2021-08-08 00:22 | Emergency (ER) | payer OTHER ==
[~2021-08-08] VITALS: Ht 154.9 cm; Wt 74.0 kg
[2021-08-08 00:42] LABS: BASO % 0.4 % (0.0-1.0); EOS # 0.3 10*3/uL (0.0-0.4); EOS % 2.7 % (1.0-4.0); HEMATOCRIT 33.7 % (37.0-47.0); LYMPH # 4.6 10*3/uL (1.3-4.4); MEAN CELL VOLUME 86.4 fl (81.0-99.0); MEAN CORPUSCULAR HGB 28.2 pg (27.0-31.0); MEAN CORPUSCULAR HGB CONC 32.6 g/dl (33.0-37.0); MEAN PLATELET VOLUME 9.5 fl (9.6-12.3); MONO # 0.7 10*3/uL (0.1-1.0); MONO % 6.3 % (3.0-9.0); NEUT # 5.6 10*3/uL (2.3-7.9); NEUT % 49.3 % (47.0-73.0); PLATELET COUNT AUTOMATED 417 10*3/uL (130-400); RED CELL DISTRI WIDTH 17.3 % (0-14.5); WHITE BLOOD COUNT 11.3 10*3/uL (4.8-10.8)
[2021-08-08 00:54] LABS: ACT PARTIAL THROMBO TIME 27.3 SECONDS (20.0-32.1)
[2021-08-08 01:00] LABS: ALBUMIN 3.2 gm/dl (3.1-4.5); ALKALINE PHOSPHATASE 79 U/L (45-117); BUN 12 mg/dl (7-24); CHLORIDE 105 mmol/L (98-107); CREATININE 0.66 mg/dL (0.55-1.02); POTASSIUM 3.2 mmol/L (3.5-5.1); SGOT/AST 16 IU/L (3-35); SGPT/ALT 24 U/L (12-78); SODIUM 138 mmol/L (136-145); TOTAL PROTEIN 6.7 gm/dL (6.4-8.2)
[2021-08-08 01:01] LABS: TROPONIN I < 0.015 ng/ml (<0.045)
[2021-08-08 19:17] VITALS: BP 163/98
== END 2021-08-09 00:47 | disposition short-term general hospital (02) ==
LOC: ED 00:22
PROVIDERS: Emergency Medicine
DX: I74.8 Embolism and thrombosis of other arteries (principal); Z79.899 Other long term (current) drug therapy

== ENCOUNTER → 2021-10-12 | Outpatient (CLI) | payer OTHER | END | disposition home or self-care (01) | LOC: CARD 09-19 09:30 | PROVIDERS: ATTEND Internal Medicine Cardiovascular Disease | DX: R07.9 Chest pain, unspecified (principal) ==

== ENCOUNTER 2021-10-20 20:10 | Emergency (ER) | payer OTHER ==
[~2021-10-20] VITALS: Ht 154.9 cm; Wt 77.1 kg
[2021-10-20 20:36] VITALS: BP 172/98
[2021-10-20 20:36] LABS: BASO % 0.3 % (0.0-1.0); EOS # 0.3 10*3/uL (0.0-0.4); EOS % 2.3 % (1.0-4.0); HEMATOCRIT 36.1 % (37.0-47.0); LYMPH # 3.9 10*3/uL (1.3-4.4); MEAN CORPUSCULAR HGB 28.2 pg (27.0-31.0); MEAN CORPUSCULAR HGB CONC 32.4 g/dl (33.0-37.0); MEAN PLATELET VOLUME 9.6 fl (9.6-12.3); MONO # 0.7 10*3/uL (0.1-1.0); MONO % 5.7 % (3.0-9.0); NEUT # 6.9 10*3/uL (2.3-7.9); NEUT % 58.2 % (47.0-73.0); PLATELET COUNT AUTOMATED 490 10*3/uL (130-400); RED BLOOD COUNT 4.15 10*6/uL (4.10-5.10); RED CELL DISTRI WIDTH 17.5 % (0-14.5); WHITE BLOOD COUNT 11.9 10*3/uL (4.8-10.8)
[2021-10-20 20:45] LABS: INTERNATIONAL NORM RATIO 0.9 (2.0-3.5)
[2021-10-20 20:54] LABS: ALBUMIN 3.5 gm/dl (3.1-4.5); ALKALINE PHOSPHATASE 103 U/L (45-117); BUN 20 mg/dl (7-24); CHLORIDE 110 mmol/L (98-107); CREATININE 0.92 mg/dL (0.55-1.02); POTASSIUM 3.6 mmol/L (3.5-5.1); SGOT/AST 19 IU/L (3-35); SGPT/ALT 25 U/L (12-78); SODIUM 137 mmol/L (136-145); TOTAL PROTEIN 7.4 gm/dL (6.4-8.2)
[2021-10-20] MEDS ORDERED: HYDROCODONE-AC1 EAC1 PO (23:24)
== END 2021-10-21 00:20 | disposition home or self-care (01) ==
LOC: ED 20:10
PROVIDERS: Physician Assistant
DX: R07.9 Chest pain, unspecified (principal); R06.02 Shortness of breath; R42 Dizziness and giddiness; Z79.899 Other long term (current) drug therapy; F17.210 Nicotine dependence, cigarettes, uncomplicated

== ENCOUNTER 2022-02-21 17:36 | Inpatient (IN) | payer OTHER ==
[~2022-02-21] VITALS: Ht 154.9 cm; Wt 86.4 kg
[2022-02-21 18:27] VITALS: BP 157/104
[2022-02-21 19:17] LABS: BILIRUBIN Negative (Negative); BLOOD 1+ (Negative); CLARITY Turbid (Clear); COLOR Yellow (Yellow); GLUCOSE Negative (Negative); KETONE Trace (Negative); LEUKO ESTERASE Trace (Negative); NITRITE Negative (Negative); SPECIFIC GRAVITY >= 1.030 (1.001-1.030)
[2022-02-21 19:23] LABS: BASO % 0.3 % (0.0-1.0); EOS # 0.3 10*3/uL (0.0-0.4); HEMATOCRIT 38.1 % (37.0-47.0); LYMPH # 1.6 10*3/uL (1.3-4.4); LYMPH % 14.2 % (27.0-41.0); MEAN CELL VOLUME 81.4 fl (81.0-99.0); MEAN CORPUSCULAR HGB 26.1 pg (27.0-31.0); MEAN PLATELET VOLUME 9.2 fl (9.6-12.3); MONO # 0.5 10*3/uL (0.1-1.0); MONO % 4.1 % (3.0-9.0); NEUT # 8.9 10*3/uL (2.3-7.9); PLATELET COUNT AUTOMATED 531 10*3/uL (130-400); RED BLOOD COUNT 4.68 10*6/uL (4.10-5.10); RED CELL DISTRI WIDTH 17.2 % (0-14.5); WHITE BLOOD COUNT 11.4 10*3/uL (4.8-10.8)
[2022-02-21 19:43] LABS: BACTERIA 1+; EPITHELIAL CELLS TNTC; WBC 0-2 wbc/hpf (0-5)
[2022-02-21 19:43] LABS: ALKALINE PHOSPHATASE 129 U/L (45-117); BUN 10 mg/dl (7-24); CHLORIDE 108 mmol/L (98-107); CREATININE 0.84 mg/dL (0.55-1.02); LIPASE 70 U/L (73-393); POTASSIUM 3.7 mmol/L (3.5-5.1); SGOT/AST 19 IU/L (3-35); SGPT/ALT 28 U/L (12-78); SODIUM 136 mmol/L (136-145); TOTAL PROTEIN 7.9 gm/dL (6.4-8.2)
[2022-02-21 20:16] VITALS: BP 147/72
[2022-02-22 02:48] VITALS: BP 147/70
[2022-02-22 06:05] LABS: BUN 9 mg/dl (7-24); CHLORIDE 106 mmol/L (98-107); CHOLESTEROL 154 mg/dL (<200); POTASSIUM 3.2 mmol/L (3.5-5.1); SGOT/AST 16 IU/L (3-35); SGPT/ALT 22 U/L (12-78); SODIUM 136 mmol/L (136-145); TOTAL PROTEIN 6.4 gm/dL (6.4-8.2); TRIGLYCERIDES 319 mg/dl (<150)
[2022-02-22 06:08] LABS: ALKALINE PHOSPHATASE 103 U/L (45-117); LDL CHOLESTEROL 46 mg/dL (9-159)
[2022-02-22 06:13] LABS: BASO % 0.2 % (0.0-1.0); EOS # 0.3 10*3/uL (0.0-0.4); EOS % 3.3 % (1.0-4.0); HEMATOCRIT 31.8 % (37.0-47.0); LYMPH # 2.2 10*3/uL (1.3-4.4); LYMPH % 25.7 % (27.0-41.0); MEAN CORPUSCULAR HGB 26.5 pg (27.0-31.0); MEAN CORPUSCULAR HGB CONC 32.4 g/dl (33.0-37.0); MEAN PLATELET VOLUME 9.7 fl (9.6-12.3); MONO # 0.5 10*3/uL (0.1-1.0); MONO % 6.1 % (3.0-9.0); NEUT # 5.4 10*3/uL (2.3-7.9); NEUT % 64.3 % (47.0-73.0); PLATELET COUNT AUTOMATED 467 10*3/uL (130-400); RED BLOOD COUNT 3.88 10*6/uL (4.10-5.10); RED CELL DISTRI WIDTH 17.2 % (0-14.5); WHITE BLOOD COUNT 8.4 10*3/uL (4.8-10.8)
[2022-02-22 06:45] VITALS: BP 164/91
[2022-02-22 08:30] VITALS: BP 166/111
[2022-02-22 12:00] VITALS: BP 143/90
[2022-02-22 16:00] VITALS: BP 135/105
[2022-02-22 20:25] VITALS: BP 150/82
[2022-02-23] VITALS: BP 147/93
[2022-02-23 05:55] LABS: BUN 5 mg/dl (7-24); CHLORIDE 108 mmol/L (98-107); CREATININE 0.62 mg/dL (0.55-1.02); POTASSIUM 3.5 mmol/L (3.5-5.1); SODIUM 137 mmol/L (136-145)
[2022-02-23 06:34] LABS: BASO % 0.4 % (0.0-1.0); EOS # 0.3 10*3/uL (0.0-0.4); EOS % 4.3 % (1.0-4.0); HEMATOCRIT 32.5 % (37.0-47.0); LYMPH # 2.2 10*3/uL (1.3-4.4); LYMPH % 28.9 % (27.0-41.0); MEAN CELL VOLUME 81.7 fl (81.0-99.0); MEAN CORPUSCULAR HGB 26.4 pg (27.0-31.0); MEAN CORPUSCULAR HGB CONC 32.3 g/dl (33.0-37.0); MEAN PLATELET VOLUME 9.4 fl (9.6-12.3); MONO # 0.5 10*3/uL (0.1-1.0); MONO % 5.9 % (3.0-9.0); NEUT # 4.6 10*3/uL (2.3-7.9); NEUT % 60.1 % (47.0-73.0); PLATELET COUNT AUTOMATED 476 10*3/uL (130-400); RED BLOOD COUNT 3.98 10*6/uL (4.10-5.10); RED CELL DISTRI WIDTH 16.8 % (0-14.5); WHITE BLOOD COUNT 7.7 10*3/uL (4.8-10.8)
[2022-02-23 08:00] VITALS: BP 172/90
[2022-02-23 12:00] VITALS: BP 167/84
[2022-02-23 16:00] VITALS: BP 167/86
[2022-02-23 20:00] VITALS: BP 165/95
[2022-02-24] VITALS: BP 152/96; BP 157/100
[2022-02-24 08:00] VITALS: BP 173/87
[2022-02-24 10:43] VITALS: BP 162/100
[2022-02-24] MEDS ORDERED: CIPRO500 MG PO (11:56)
[2022-02-24] MEDS ORDERED: METRONIDAZOLE500 M1 PO (11:56)
[2022-02-24] MEDS ORDERED: VITAMIN D350 MC2 PO (11:59)
[2022-02-24] MEDS ORDERED: VITAMIN D31250 MCG PO (11:59)
[2022-02-24] MEDS ORDERED: HYDROCODONE-AC1 EAC1 PO (11:59)
[2022-02-24 12:00] VITALS: BP 160/100
== END 2022-02-24 14:03 | disposition home or self-care (01) | DRG 244 ==
LOC: ED 17:36 → EDHOLD 22:51 → 4E 22:51 → EDHOLD 23:06 → 4E 02-22 07:26
PROVIDERS: Emergency Medicine; Internal Medicine; Student in an Organized Health Care Education/Training Program; ADMIT Family Medicine; ATTEND Family Medicine
DX: K57.92 Diverticulitis of intestine, part unspecified, without perforation or abscess without bleeding (principal); K21.9 Gastro-esophageal reflux disease without esophagitis; R31.9 Hematuria, unspecified; I10 Essential (primary) hypertension; E44.0 Moderate protein-calorie malnutrition; K52.9 Noninfective gastroenteritis and colitis, unspecified; E78.5 Hyperlipidemia, unspecified; D75.839 Thrombocytosis, unspecified; R73.9 Hyperglycemia, unspecified; E87.6 Hypokalemia; E55.9 Vitamin D deficiency, unspecified; F17.210 Nicotine dependence, cigarettes, uncomplicated; Z79.1 Long term (current) use of non-steroidal anti-inflammatories (NSAID); Z71.6 Tobacco abuse counseling; Z68.36 Body mass index [BMI] 36.0-36.9, adult; Z98.891 History of uterine scar from previous surgery

== ENCOUNTER → 2022-03-08 | Outpatient (CLI) | payer OTHER ==
[~2022-03-08] MED LIST changes: +AMLODIPINE BESY10 MG PO; +BUPROPION HYDR150 M3 PO; +CARVEDILOL6.25 MG PO; +METRONIDAZOLE500 M1 PO; +VITAMIN D31250 MCG PO
== END | disposition home or self-care (01) ==
LOC: RESCLI 01:59
PROVIDERS: ATTEND Internal Medicine Nephrology
DX: Z09 Encounter for follow-up examination after completed treatment for conditions other than malignant neoplasm (principal); K57.90 Diverticulosis of intestine, part unspecified, without perforation or abscess without bleeding; Z87.19 Personal history of other diseases of the digestive system; K76.0 Fatty (change of) liver, not elsewhere classified; I10 Essential (primary) hypertension; K21.00 Gastro-esophageal reflux disease with esophagitis, without bleeding; E78.5 Hyperlipidemia, unspecified; E55.9 Vitamin D deficiency, unspecified; L25.8 Unspecified contact dermatitis due to other agents; Z79.899 Other long term (current) drug therapy

== ENCOUNTER → 2022-03-15 | Outpatient (CLI) | payer OTHER | LOC: RESCLI 00:17 | PROVIDERS: ATTEND Internal Medicine Nephrology | DX: I10 Essential (primary) hypertension (principal); E78.5 Hyperlipidemia, unspecified; K57.90 Diverticulosis of intestine, part unspecified, without perforation or abscess without bleeding; K57.92 Diverticulitis of intestine, part unspecified, without perforation or abscess without bleeding; K21.9 Gastro-esophageal reflux disease without esophagitis; F32.A Depression, unspecified; E55.9 Vitamin D deficiency, unspecified; L25.8 Unspecified contact dermatitis due to other agents; Z79.899 Other long term (current) drug therapy ==

== ENCOUNTER 2022-03-20 14:52 | Inpatient (IN) | payer OTHER ==
[~2022-03-20] VITALS: Ht 154.9 cm; Wt 74.9 kg
[2022-03-20] VITALS (7 sets, daily range): BP systolic 143–198; BP diastolic 86–121
[~2022-03-20 14:52] MED LIST changes: -AMLODIPINE BESY10 MG PO; -BUPROPION HYDR150 M3 PO; -CARVEDILOL6.25 MG PO
[2022-03-20 15:22] LABS: BASO % 0.4 % (0.0-1.0); EOS # 0.3 10*3/uL (0.0-0.4); EOS % 2.9 % (1.0-4.0); LYMPH # 4.4 10*3/uL (1.3-4.4); LYMPH % 42.2 % (27.0-41.0); MEAN CORPUSCULAR HGB 26.1 pg (27.0-31.0); MEAN CORPUSCULAR HGB CONC 32.6 g/dl (33.0-37.0); MEAN PLATELET VOLUME 9.4 fl (9.6-12.3); MONO # 0.7 10*3/uL (0.1-1.0); MONO % 7.2 % (3.0-9.0); NEUT # 4.9 10*3/uL (2.3-7.9); NEUT % 47.1 % (47.0-73.0); PLATELET COUNT AUTOMATED 534 10*3/uL (130-400); RED BLOOD COUNT 4.25 10*6/uL (4.10-5.10); RED CELL DISTRI WIDTH 17.5 % (0-14.5); WHITE BLOOD COUNT 10.3 10*3/uL (4.8-10.8)
[2022-03-20 15:36] LABS: ACT PARTIAL THROMBO TIME 25.9 SECONDS (20.0-32.1); INTERNATIONAL NORM RATIO 0.9 (2.0-3.5)
[2022-03-20 15:44] LABS: ALKALINE PHOSPHATASE 115 U/L (45-117); BUN 14 mg/dl (7-24); CHLORIDE 109 mmol/L (98-107); CREATININE 0.75 mg/dL (0.55-1.02); POTASSIUM 3.7 mmol/L (3.5-5.1); SGOT/AST 20 IU/L (3-35); SGPT/ALT 28 U/L (12-78); SODIUM 139 mmol/L (136-145)
[2022-03-20] MEDS ORDERED: AMLODIPINE BESY10 MG PO (16:58)
[2022-03-20] MEDS ORDERED: BUPROPION HYDR150 M3 PO (16:59)
[2022-03-20] MEDS ORDERED: CARVEDILOL6.25 MG PO (16:59)
[2022-03-21] VITALS: BP 153/88
[2022-03-21 06:09] LABS: ALKALINE PHOSPHATASE 101 U/L (45-117); BUN 14 mg/dl (7-24); CHLORIDE 100 mmol/L (98-107); CREATININE 0.76 mg/dL (0.55-1.02); POTASSIUM 3.1 mmol/L (3.5-5.1); SGOT/AST 25 IU/L (3-35); SGPT/ALT 29 U/L (12-78); SODIUM 135 mmol/L (136-145); TOTAL PROTEIN 6.7 gm/dL (6.4-8.2)
[2022-03-21 06:12] LABS: BASO % 0.4 % (0.0-1.0); EOS # 0.3 10*3/uL (0.0-0.4); EOS % 3.2 % (1.0-4.0); HEMATOCRIT 31.5 % (37.0-47.0); LYMPH # 4.2 10*3/uL (1.3-4.4); LYMPH % 45.3 % (27.0-41.0); MEAN CELL VOLUME 79.7 fl (81.0-99.0); MEAN CORPUSCULAR HGB 26.1 pg (27.0-31.0); MEAN CORPUSCULAR HGB CONC 32.7 g/dl (33.0-37.0); MEAN PLATELET VOLUME 9.7 fl (9.6-12.3); MONO # 0.6 10*3/uL (0.1-1.0); MONO % 6.2 % (3.0-9.0); NEUT # 4.1 10*3/uL (2.3-7.9); NEUT % 44.6 % (47.0-73.0); PLATELET COUNT AUTOMATED 533 10*3/uL (130-400); RED BLOOD COUNT 3.95 10*6/uL (4.10-5.10); RED CELL DISTRI WIDTH 17.2 % (0-14.5); WHITE BLOOD COUNT 9.3 10*3/uL (4.8-10.8)
[2022-03-21 06:13] LABS: ACT PARTIAL THROMBO TIME 26.2 SECONDS (20.0-32.1); INTERNATIONAL NORM RATIO 0.9 (2.0-3.5)
[2022-03-21 08:00] VITALS: BP 174/89
[2022-03-21 12:00] VITALS: BP 121/94
[2022-03-21 16:00] VITALS: BP 148/85
[2022-03-21 20:00] VITALS: BP 180/99
[2022-03-22] VITALS: BP 154/90
[2022-03-22 08:00] VITALS: BP 136/90
[2022-03-22] MEDS ORDERED: ASPIRIN ADULT L81 M2 PO (10:47)
[2022-03-22] MEDS ORDERED: CARVEDILOL12.5 MG PO (10:47)
== END 2022-03-22 11:40 | disposition home or self-care (01) | DRG 199 ==
LOC: ED 14:52 → 4E 16:42 → EDHOLD 16:42 → 4E 18:35
PROVIDERS: Emergency Medicine; Student in an Organized Health Care Education/Training Program; ADMIT Internal Medicine; ATTEND Internal Medicine
DX: I16.1 Hypertensive emergency (principal); R07.9 Chest pain, unspecified; I74.10 Embolism and thrombosis of unspecified parts of aorta; E87.8 Other disorders of electrolyte and fluid balance, not elsewhere classified; D50.9 Iron deficiency anemia, unspecified; D75.839 Thrombocytosis, unspecified; I10 Essential (primary) hypertension; K21.9 Gastro-esophageal reflux disease without esophagitis; E78.2 Mixed hyperlipidemia; F17.200 Nicotine dependence, unspecified, uncomplicated; F41.9 Anxiety disorder, unspecified; K76.0 Fatty (change of) liver, not elsewhere classified; Z79.899 Other long term (current) drug therapy

== ENCOUNTER → 2022-09-27 | Outpatient (CLI) | payer OTHER ==
[~2022-09-27] MED LIST changes: +AMLODIPINE BESY10 MG PO; +ASPIRIN ADULT L81 M2 PO; +BUPROPION HYDR150 M3 PO; +CARVEDILOL12.5 MG PO; +CARVEDILOL6.25 MG PO
== END | disposition home or self-care (01) ==
LOC: RESCLI 08:15
PROVIDERS: ATTEND Internal Medicine
DX: R25.2 Cramp and spasm (principal); E78.2 Mixed hyperlipidemia; D47.3 Essential (hemorrhagic) thrombocythemia; I10 Essential (primary) hypertension; E55.9 Vitamin D deficiency, unspecified; K21.9 Gastro-esophageal reflux disease without esophagitis; K57.90 Diverticulosis of intestine, part unspecified, without perforation or abscess without bleeding; Z98.890 Other specified postprocedural states; F17.210 Nicotine dependence, cigarettes, uncomplicated; Z72.89 Other problems related to lifestyle; Z79.82 Long term (current) use of aspirin; Z79.899 Other long term (current) drug therapy

== ENCOUNTER → 2022-10-04 | Outpatient (CLI) | payer OTHER | END | disposition home or self-care (01) | LOC: MAMMO 07:16 | PROVIDERS: ATTEND Student in an Organized Health Care Education/Training Program | DX: Z12.31 Encounter for screening mammogram for malignant neoplasm of breast (principal) ==

== ENCOUNTER 2022-11-20 16:33 | Emergency (ER) | payer SELFPAY ==
[~2022-11-20] VITALS: Ht 154.9 cm; Wt 77.1 kg
[2022-11-20 17:15] VITALS: BP 161/99
[2022-11-20] MEDS ORDERED: NAPROSYN500 MG PO (17:39)
== END 2022-11-20 17:46 | disposition home or self-care (01) ==
LOC: ED 16:33
DX: M77.8 Other enthesopathies, not elsewhere classified (principal); Z79.899 Other long term (current) drug therapy; Z98.890 Other specified postprocedural states; Z90.89 Acquired absence of other organs; F17.210 Nicotine dependence, cigarettes, uncomplicated

== ENCOUNTER 2023-02-03 12:11 | Emergency (ER) | payer MEDICAID ==
[~2023-02-03] VITALS: Ht 154.9 cm; Wt 79.4 kg
[~2023-02-03 12:11] MED LIST changes: +NAPROSYN500 MG PO
[2023-02-03 12:45] LABS: BASO % 0.4 % (0.0-1.0); EOS # 0.2 10*3/uL (0.0-0.4); HEMATOCRIT 33.5 % (37.0-47.0); LYMPH # 3.1 10*3/uL (1.3-4.4); LYMPH % 32.2 % (27.0-41.0); MEAN CELL VOLUME 73.8 fl (81.0-99.0); MEAN CORPUSCULAR HGB 22.7 pg (27.0-31.0); MEAN CORPUSCULAR HGB CONC 30.7 g/dl (33.0-37.0); MEAN PLATELET VOLUME 9.3 fl (9.6-12.3); MONO # 0.5 10*3/uL (0.1-1.0); MONO % 5.3 % (3.0-9.0); NEUT # 5.8 10*3/uL (2.3-7.9); NEUT % 59.8 % (47.0-73.0); PLATELET COUNT AUTOMATED 500 10*3/uL (130-400); RED BLOOD COUNT 4.54 10*6/uL (4.10-5.10); RED CELL DISTRI WIDTH 19.8 % (0-14.5); WHITE BLOOD COUNT 9.7 10*3/uL (4.8-10.8)
[2023-02-03 12:58] LABS: ACT PARTIAL THROMBO TIME 25.1 SECONDS (20.0-32.1)
[2023-02-03 13:02] LABS: ALKALINE PHOSPHATASE 119 U/L (46-116); BUN 10 mg/dl (9-23); CHLORIDE 106 mmol/L (98-107); POTASSIUM 3.6 mmol/L (3.4-5.1); SGPT/ALT 31 U/L (10-49); TOTAL PROTEIN 7.2 gm/dL (6.0-8.0)
[2023-02-03] MEDS ORDERED: ZETIA10 MG PO (13:14)
[2023-02-03] MEDS ORDERED: PRILOSEC20 M1 PO (13:15)
[2023-02-03 17:21] VITALS: BP 140/82
[2023-02-03] MEDS ORDERED: CARVEDILOL12.5 MG PO (17:39)
== END 2023-02-03 17:41 | disposition home or self-care (01) ==
LOC: ED 12:11
PROVIDERS: Internal Medicine
DX: R07.89 Other chest pain (principal); I16.0 Hypertensive urgency; Z87.442 Personal history of urinary calculi; Z90.89 Acquired absence of other organs; Z98.890 Other specified postprocedural states; F17.200 Nicotine dependence, unspecified, uncomplicated; F12.90 Cannabis use, unspecified, uncomplicated

== ENCOUNTER 2023-04-12 13:30 | Emergency (ER) | payer MEDICAID ==
[~2023-04-12] VITALS: Ht 154.9 cm; Wt 77.1 kg
[2023-04-12 14:01] VITALS: BP 184/92
[2023-04-12 14:08] LABS: BASO # 0.1 10*3/uL (0.0-0.1); BASO % 0.4 % (0.0-1.0); EOS # 0.2 10*3/uL (0.0-0.4); EOS % 1.5 % (1.0-4.0); LYMPH # 3.5 10*3/uL (1.3-4.4); LYMPH % 26.5 % (27.0-41.0); MEAN CELL VOLUME 70.9 fl (81.0-99.0); MEAN CORPUSCULAR HGB 22.7 pg (27.0-31.0); MEAN CORPUSCULAR HGB CONC 31.9 g/dl (33.0-37.0); MEAN PLATELET VOLUME 9.1 fl (9.6-12.3); MONO # 0.8 10*3/uL (0.1-1.0); NEUT # 8.6 10*3/uL (2.3-7.9); NEUT % 65.1 % (47.0-73.0); PLATELET COUNT AUTOMATED 556 10*3/uL (130-400); RED BLOOD COUNT 4.37 10*6/uL (4.10-5.10); RED CELL DISTRI WIDTH 18.9 % (0-14.5); WHITE BLOOD COUNT 13.2 10*3/uL (4.8-10.8)
[2023-04-12 14:35] LABS: ALKALINE PHOSPHATASE 132 U/L (46-116); BUN 8 mg/dl (9-23); CHLORIDE 105 mmol/L (98-107); LIPASE 27 U/L (12-53); POTASSIUM 3.9 mmol/L (3.4-5.1); SGPT/ALT 35 U/L (10-49); TOTAL PROTEIN 7.2 gm/dL (6.0-8.0)
[2023-04-12 15:38] LABS: BILIRUBIN Negative (Negative); BLOOD 1+ (Negative); CLARITY Cloudy (Clear); COLOR Yellow (Yellow); GLUCOSE Negative (Negative); KETONE Negative (Negative); LEUKO ESTERASE 2+ (Negative); NITRITE Negative (Negative); PH 5.5 (4.5-8.0); SPECIFIC GRAVITY >= 1.030 (1.001-1.030); UROBILINOGEN 0.2 E.U./dl (0.0-1.0)
[2023-04-12 16:15] LABS: BACTERIA 2+; RBC 0-2 rbc/hpf (0-2); WBC TNTC wbc/hpf (0-5)
[2023-04-12] MEDS ORDERED: ONDANSETRON4 MG SL (16:43)
[2023-04-12] MEDS ORDERED: AMOX-CLAV 875-1 EACH PO (16:43)
[2023-04-12] MEDS ORDERED: HYDROCODONE-AC1 EAC1 PO (16:43)
== END 2023-04-12 17:08 | disposition home or self-care (01) ==
LOC: ED 13:30
PROVIDERS: Emergency Medicine; Student in an Organized Health Care Education/Training Program
DX: K57.30 Diverticulosis of large intestine without perforation or abscess without bleeding (principal); F17.210 Nicotine dependence, cigarettes, uncomplicated; Z79.82 Long term (current) use of aspirin; Z79.899 Other long term (current) drug therapy; Z98.890 Other specified postprocedural states; Z90.89 Acquired absence of other organs

== ENCOUNTER 2023-07-16 17:02 | Emergency (ER) | payer MEDICAID ==
[~2023-07-16] VITALS: Ht 154.9 cm; Wt 77.1 kg
[~2023-07-16 17:02] MED LIST changes: +AMOX-CLAV 875-1 EACH PO; +ONDANSETRON4 MG SL
[2023-07-16 18:02] LABS: HEMATOCRIT 30.7 % (37.0-47.0); MEAN CELL VOLUME 73.3 fl (81.0-99.0); MEAN CORPUSCULAR HGB 22.7 pg (27.0-31.0); MEAN CORPUSCULAR HGB CONC 30.9 g/dl (33.0-37.0); PLATELET COUNT AUTOMATED 506 10*3/uL (130-400); RED BLOOD COUNT 4.19 10*6/uL (4.10-5.10); RED CELL DISTRI WIDTH 21.1 % (0-14.5); WHITE BLOOD COUNT 11.8 10*3/uL (4.8-10.8)
[2023-07-16 18:03] LABS: MANUAL DIFF REFLEX YES
[2023-07-16 18:16] LABS: ACT PARTIAL THROMBO TIME 25.3 SECONDS (20.0-32.1); INTERNATIONAL NORM RATIO 0.9 (2.0-3.5)
[2023-07-16 18:22] LABS: ALKALINE PHOSPHATASE 116 U/L (46-116); BUN 11 mg/dl (9-23); CHLORIDE 107 mmol/L (98-107); LIPASE 35 U/L (12-53); POTASSIUM 3.7 mmol/L (3.4-5.1); SGPT/ALT 24 U/L (10-49); TOTAL PROTEIN 7.2 gm/dL (6.0-8.0)
[2023-07-16 18:28] LABS: ATYPICAL LYMPHS 1 % (0-0); BASOPHILS 1 % (0-1); TOTAL CELLS COUNTED 100 #CELLS
[2023-07-16 18:29] LABS: PLATELET SUFFICIENCY HIGH (NORMAL); POLYCHROMASIA SLIGHT
[2023-07-16 18:30] LABS: TARGET CELLS FEW
[2023-07-16 18:31] LABS: OVALOCYTES FEW
[2023-07-16 20:55] VITALS: BP 182/86
[2023-07-16] MEDS ORDERED: NAPROXEN250 MG PO (21:05)
== END 2023-07-16 21:42 | disposition home or self-care (01) ==
LOC: ED 17:02
PROVIDERS: Emergency Medicine
DX: S40.012A Contusion of left shoulder, initial encounter (principal); S00.93XA Contusion of unspecified part of head, initial encounter; I16.0 Hypertensive urgency; F17.210 Nicotine dependence, cigarettes, uncomplicated; Z79.899 Other long term (current) drug therapy; Z79.2 Long term (current) use of antibiotics; Z79.82 Long term (current) use of aspirin; Z98.890 Other specified postprocedural states; Z90.89 Acquired absence of other organs; W11.XXXA Fall on and from ladder, initial encounter; Y93.89 Activity, other specified; Y92.89 Other specified places as the place of occurrence of the external cause; Y99.8 Other external cause status

== ENCOUNTER 2023-08-17 16:26 | Emergency (ER) | payer MEDICAID ==
[~2023-08-17] VITALS: Ht 154.9 cm
[~2023-08-17 16:26] MED LIST changes: +NAPROXEN250 MG PO
[2023-08-17 16:36] VITALS: BP 154/87
[2023-08-17 16:40] LABS: BASO % 0.3 % (0.0-1.0); EOS # 0.1 10*3/uL (0.0-0.4); EOS % 0.8 % (1.0-4.0); HEMATOCRIT 33.8 % (37.0-47.0); LYMPH # 3.2 10*3/uL (1.3-4.4); LYMPH % 27.5 % (27.0-41.0); MEAN CELL VOLUME 71.9 fl (81.0-99.0); MEAN CORPUSCULAR HGB 22.6 pg (27.0-31.0); MEAN CORPUSCULAR HGB CONC 31.4 g/dl (33.0-37.0); MEAN PLATELET VOLUME 9.1 fl (9.6-12.3); MONO # 0.7 10*3/uL (0.1-1.0); MONO % 5.6 % (3.0-9.0); NEUT # 7.5 10*3/uL (2.3-7.9); NEUT % 65.4 % (47.0-73.0); PLATELET COUNT AUTOMATED 574 10*3/uL (130-400); RED CELL DISTRI WIDTH 20.1 % (0-14.5); WHITE BLOOD COUNT 11.5 10*3/uL (4.8-10.8)
[2023-08-17 17:01] LABS: POTASSIUM 3.8 mmol/L (3.4-5.1); TOTAL PROTEIN 8.4 gm/dL (6.0-8.0)
[2023-08-17] MEDS ORDERED: TRAMADOL HCL50 MG PO (17:25)
[2023-08-17] MEDS ORDERED: PREDNISONE20 M1 PO (17:25)
== END 2023-08-17 17:51 | disposition home or self-care (01) ==
LOC: ED 16:26
PROVIDERS: Emergency Medicine
DX: M35.3 Polymyalgia rheumatica (principal); R11.2 Nausea with vomiting, unspecified; I10 Essential (primary) hypertension; E78.5 Hyperlipidemia, unspecified; F17.210 Nicotine dependence, cigarettes, uncomplicated; Z79.2 Long term (current) use of antibiotics; Z79.899 Other long term (current) drug therapy; Z79.82 Long term (current) use of aspirin; Z90.89 Acquired absence of other organs; Z98.890 Other specified postprocedural states

== ENCOUNTER 2023-10-30 18:56 | Emergency (ER) | payer MEDICAID ==
[~2023-10-30] VITALS: Ht 154.9 cm; Wt 74.8 kg
[~2023-10-30 18:56] MED LIST changes: +PREDNISONE20 M1 PO; +TRAMADOL HCL50 MG PO
[2023-10-30 19:27] LABS: BASO % 0.3 % (0.0-1.0); EOS # 0.3 10*3/uL (0.0-0.4); HEMATOCRIT 31.3 % (37.0-47.0); LYMPH # 4.4 10*3/uL (1.3-4.4); LYMPH % 47.2 % (27.0-41.0); MEAN CELL VOLUME 73.1 fl (81.0-99.0); MEAN CORPUSCULAR HGB 21.3 pg (27.0-31.0); MEAN CORPUSCULAR HGB CONC 29.1 g/dl (33.0-37.0); MEAN PLATELET VOLUME 9.1 fl (9.6-12.3); MONO # 0.6 10*3/uL (0.1-1.0); MONO % 6.9 % (3.0-9.0); NEUT # 3.9 10*3/uL (2.3-7.9); NEUT % 42.4 % (47.0-73.0); PLATELET COUNT AUTOMATED 468 10*3/uL (130-400); RED BLOOD COUNT 4.28 10*6/uL (4.10-5.10); WHITE BLOOD COUNT 9.3 10*3/uL (4.8-10.8)
[2023-10-30 19:40] LABS: ACT PARTIAL THROMBO TIME 24.8 SECONDS (20.0-32.1)
[2023-10-30 19:49] LABS: ALKALINE PHOSPHATASE 120 U/L (46-116); BUN 8 mg/dl (9-23); CHLORIDE 106 mmol/L (98-107); SGPT/ALT 19 U/L (5-49); TOTAL PROTEIN 7.4 gm/dL (6.0-8.0)
[2023-10-31 02:21] VITALS: BP 134/58
== END 2023-10-31 02:51 | disposition home or self-care (01) ==
LOC: ED 18:56
PROVIDERS: Emergency Medicine
DX: I10 Essential (primary) hypertension (principal); R07.89 Other chest pain; K21.9 Gastro-esophageal reflux disease without esophagitis; E78.5 Hyperlipidemia, unspecified; E78.00 Pure hypercholesterolemia, unspecified; D64.9 Anemia, unspecified; Z90.89 Acquired absence of other organs; Z98.890 Other specified postprocedural states; F17.210 Nicotine dependence, cigarettes, uncomplicated; F12.90 Cannabis use, unspecified, uncomplicated

== ENCOUNTER → 2024-02-11 | Outpatient (CLI) | payer MEDICAID ==
[2024-02-11 08:48] LABS: BASO % 0.4 % (0.0-1.0); EOS # 0.2 10*3/uL (0.0-0.4); EOS % 2.6 % (1.0-4.0); HEMATOCRIT 30.8 % (37.0-47.0); LYMPH # 2.6 10*3/uL (1.3-4.4); LYMPH % 33.8 % (27.0-41.0); MEAN CELL VOLUME 71.5 fl (81.0-99.0); MEAN CORPUSCULAR HGB 21.6 pg (27.0-31.0); MEAN CORPUSCULAR HGB CONC 30.2 g/dl (33.0-37.0); MONO # 0.5 10*3/uL (0.1-1.0); MONO % 6.8 % (3.0-9.0); NEUT # 4.2 10*3/uL (2.3-7.9); NEUT % 56.1 % (47.0-73.0); PLATELET COUNT AUTOMATED 386 10*3/uL (130-400); RED BLOOD COUNT 4.31 10*6/uL (4.10-5.10); RED CELL DISTRI WIDTH 21.6 % (0-14.5); WHITE BLOOD COUNT 7.6 10*3/uL (4.8-10.8)
[2024-02-11 09:57] LABS: ALKALINE PHOSPHATASE 112 U/L (46-116); BUN 8 mg/dl (9-23); CHLORIDE 106 mmol/L (98-107); CHOLESTEROL 195 mg/dL (<200); FREE T4 0.97 ng/dl (0.89-1.76); LDL CHOLESTEROL 87 mg/dL (9-159); POTASSIUM 3.9 mmol/L (3.4-5.1); SGPT/ALT 34 U/L (5-49); TRIGLYCERIDES 239 mg/dl (<150)
== END | disposition home or self-care (01) ==
LOC: LAB 08:28
PROVIDERS: ATTEND Internal Medicine
DX: I10 Essential (primary) hypertension (principal)

== ENCOUNTER 2024-02-19 16:09 | Emergency (ER) | payer MEDICAID ==
[~2024-02-19] VITALS: Ht 154.9 cm; Wt 88.9 kg
[2024-02-19] MEDS ORDERED: LEVOTHYROXINE25 MCG PO (16:28)
[2024-02-19] MEDS ORDERED: VITAMIN D3125 MC1 PO (16:30)
[2024-02-19] MEDS ORDERED: IRON325 M1 PO (16:32)
[2024-02-19 16:47] LABS: BASO % 0.4 % (0.0-1.0); EOS # 0.2 10*3/uL (0.0-0.4); EOS % 2.6 % (1.0-4.0); HEMATOCRIT 31.3 % (37.0-47.0); LYMPH # 3.3 10*3/uL (1.3-4.4); LYMPH % 35.5 % (27.0-41.0); MEAN CELL VOLUME 73.1 fl (81.0-99.0); MEAN CORPUSCULAR HGB 22.7 pg (27.0-31.0); MEAN PLATELET VOLUME 9.1 fl (9.6-12.3); MONO # 0.5 10*3/uL (0.1-1.0); MONO % 5.6 % (3.0-9.0); NEUT # 5.1 10*3/uL (2.3-7.9); NEUT % 55.6 % (47.0-73.0); PLATELET COUNT AUTOMATED 419 10*3/uL (130-400); RED BLOOD COUNT 4.28 10*6/uL (4.10-5.10); RED CELL DISTRI WIDTH 23.1 % (0-14.5); WHITE BLOOD COUNT 9.3 10*3/uL (4.8-10.8)
[2024-02-19 17:08] LABS: ALKALINE PHOSPHATASE 120 U/L (46-116); BUN 9 mg/dl (9-23); CHLORIDE 105 mmol/L (98-107); POTASSIUM 3.7 mmol/L (3.4-5.1); SGPT/ALT 27 U/L (5-49)
[2024-02-19 17:33] VITALS: BP 176/80
[2024-02-19] MEDS ORDERED: hydrOXYzine pamoate 25 MG CAP PO ONE (17:40)
== END 2024-02-19 18:27 | disposition home or self-care (01) ==
LOC: ED 16:09
PROVIDERS: Physician Assistant Medical
DX: I10 Essential (primary) hypertension (principal); F17.210 Nicotine dependence, cigarettes, uncomplicated; Z79.899 Other long term (current) drug therapy; Z98.890 Other specified postprocedural states; Z90.89 Acquired absence of other organs

== ENCOUNTER → 2024-03-13 | Outpatient (CLI) | payer MEDICAID ==
[~2024-03-13] MED LIST changes: +ALDACTONE25 MG PO; +IRON325 M1 PO; +LEVOTHYROXINE25 MCG PO; +VITAMIN D3125 MC1 PO
[2024-03-13 11:58] LABS: BUN 13 mg/dl (9-23); CHLORIDE 102 mmol/L (98-107); POTASSIUM 3.9 mmol/L (3.4-5.1)
== END | disposition home or self-care (01) ==
LOC: LAB 09:44 → US 10:30
PROVIDERS: ATTEND Internal Medicine Nephrology
DX: I10 Essential (primary) hypertension (principal)

== ENCOUNTER → 2024-06-26 | Outpatient (CLI) | payer MEDICAID ==
[2024-06-26 13:30] LABS: BUN 8 mg/dl (9-23); CHLORIDE 104 mmol/L (98-107); POTASSIUM 3.7 mmol/L (3.4-5.1)
== END | disposition home or self-care (01) ==
LOC: LAB 12:26
PROVIDERS: ATTEND Internal Medicine
DX: U07.1 COVID-19 (principal)

== ENCOUNTER → 2024-07-19 | Outpatient (CLI) | payer MEDICAID ==
[2024-07-19 08:41] LABS: BASO % 0.3 % (0.0-1.0); EOS # 0.3 10*3/uL (0.0-0.4); EOS % 2.7 % (1.0-4.0); HEMATOCRIT 30.6 % (37.0-47.0); LYMPH # 2.9 10*3/uL (1.3-4.4); LYMPH % 30.7 % (27.0-41.0); MEAN CELL VOLUME 78.3 fl (81.0-99.0); MEAN CORPUSCULAR HGB CONC 30.7 g/dl (33.0-37.0); MEAN PLATELET VOLUME 8.7 fl (9.6-12.3); MONO # 0.5 10*3/uL (0.1-1.0); MONO % 5.1 % (3.0-9.0); NEUT # 5.8 10*3/uL (2.3-7.9); NEUT % 60.9 % (47.0-73.0); PLATELET COUNT AUTOMATED 452 10*3/uL (130-400); RED BLOOD COUNT 3.91 10*6/uL (4.10-5.10); RED CELL DISTRI WIDTH 18.8 % (0-14.5); WHITE BLOOD COUNT 9.5 10*3/uL (4.8-10.8)
== END | disposition home or self-care (01) ==
LOC: LAB 08:24
PROVIDERS: ATTEND Internal Medicine Nephrology
DX: D50.9 Iron deficiency anemia, unspecified (principal)

== ENCOUNTER 2024-08-22 13:22 | Emergency (ER) | payer MEDICAID ==
[~2024-08-22] VITALS: Ht 154.9 cm; Wt 77.1 kg
[2024-08-22 14:46] VITALS: BP 174/86
[2024-08-22 16:41] LABS: BASO % 0.3 % (0.0-1.0); EOS # 0.3 10*3/uL (0.0-0.4); EOS % 2.9 % (1.0-4.0); HEMATOCRIT 30.5 % (37.0-47.0); MEAN CELL VOLUME 80.1 fl (81.0-99.0); MEAN CORPUSCULAR HGB 24.7 pg (27.0-31.0); MEAN CORPUSCULAR HGB CONC 30.8 g/dl (33.0-37.0); MEAN PLATELET VOLUME 9.5 fl (9.6-12.3); MONO # 0.6 10*3/uL (0.1-1.0); MONO % 6.5 % (3.0-9.0); NEUT # 4.9 10*3/uL (2.3-7.9); NEUT % 50.6 % (47.0-73.0); PLATELET COUNT AUTOMATED 384 10*3/uL (130-400); RED BLOOD COUNT 3.81 10*6/uL (4.10-5.10); RED CELL DISTRI WIDTH 21.3 % (0-14.5); WHITE BLOOD COUNT 9.7 10*3/uL (4.8-10.8)
[2024-08-22 16:48] LABS: BILIRUBIN Negative (Negative); BLOOD Negative (Negative); CLARITY Clear (Clear); COLOR Yellow (Yellow); GLUCOSE Negative (Negative); KETONE Trace (Negative); LEUKO ESTERASE Negative (Negative); NITRITE Negative (Negative); PH 5.5 (4.5-8.0); UROBILINOGEN 0.2 E.U./dl (0.0-1.0)
[2024-08-22 16:55] LABS: RBC 0-2 rbc/hpf (0-2)
[2024-08-22 16:56] LABS: FINE GRANULAR CAST 0-2; MUCOUS TRACE; WBC 0-2 wbc/hpf (0-5)
[2024-08-22 17:03] LABS: ALKALINE PHOSPHATASE 114 U/L (46-116); BUN 9 mg/dl (9-23); CHLORIDE 109 mmol/L (98-107); LIPASE 31 U/L (12-53); POTASSIUM 3.5 mmol/L (3.4-5.1); SGPT/ALT 22 U/L (5-49); TOTAL PROTEIN 6.9 gm/dL (6.0-8.0)
[2024-08-22] MEDS ORDERED: fentaNYL CITRATE 100 MCG/2 ML VIAL IV ONE (18:05)
[2024-08-22] MEDS ORDERED: CIPRO500 MG PO (18:51)
[2024-08-22] MEDS ORDERED: METRONIDAZOLE500 M1 PO (18:51)
[2024-08-22] MEDS ORDERED: Ciprofloxacin Hydrochloride 500 MG TAB PO ONE (18:55)
[2024-08-22] MEDS ORDERED: METRONIDAZOLE 500 MG TAB PO ONE (18:55)
== END 2024-08-22 19:28 | disposition home or self-care (01) ==
LOC: ED 13:22
PROVIDERS: Nurse Practitioner Family
DX: R10.32 Left lower quadrant pain (principal); R19.7 Diarrhea, unspecified; I10 Essential (primary) hypertension; E78.5 Hyperlipidemia, unspecified; K21.9 Gastro-esophageal reflux disease without esophagitis; E87.6 Hypokalemia; F17.200 Nicotine dependence, unspecified, uncomplicated; F12.90 Cannabis use, unspecified, uncomplicated; Z90.89 Acquired absence of other organs; Z98.890 Other specified postprocedural states

== ENCOUNTER 2024-08-30 01:21 | Emergency (ER) | payer MEDICAID ==
[~2024-08-30] VITALS: Ht 154.9 cm; Wt 72.6 kg
[2024-08-30 01:31] VITALS: BP 151/91
== END 2024-08-30 03:27 | disposition home or self-care (01) ==
LOC: ED 01:21
DX: S00.03XA Contusion of scalp, initial encounter (principal); S90.112A Contusion of left great toe without damage to nail, initial encounter; K21.9 Gastro-esophageal reflux disease without esophagitis; E78.5 Hyperlipidemia, unspecified; I10 Essential (primary) hypertension; E87.6 Hypokalemia; F17.200 Nicotine dependence, unspecified, uncomplicated; Z98.890 Other specified postprocedural states; Z90.89 Acquired absence of other organs; Z87.442 Personal history of urinary calculi; W01.198A Fall on same level from slipping, tripping and stumbling with subsequent striking against other object, initial encounter; Y93.89 Activity, other specified; Y92.89 Other specified places as the place of occurrence of the external cause; Y99.8 Other external cause status

== ENCOUNTER → 2024-09-02 | Outpatient (CLI) | payer MEDICAID | END | disposition home or self-care (01) | LOC: MAMMO 14:50 | PROVIDERS: ATTEND Internal Medicine Nephrology | DX: Z12.31 Encounter for screening mammogram for malignant neoplasm of breast (principal) ==

== ENCOUNTER 2025-01-19 21:22 | Emergency (ER) | payer MEDICAID ==
[~2025-01-19] VITALS: Ht 154.9 cm; Wt 77.1 kg
[2025-01-19 21:57] VITALS: BP 135/83
[2025-01-19] MEDS ORDERED: SODIUM CHLORIDE 0.9% 1,000 ML IV ONE (23:00)
[2025-01-19] MEDS ORDERED: Ondansetron Hydrochloride 4 MG/2 ML VIAL IV ONE (23:00)
[2025-01-19 23:24] LABS: BASO # 0.1 10*3/uL (0.0-0.1); BASO % 0.6 % (0.0-1.0); EOS # 0.2 10*3/uL (0.0-0.4); EOS % 2.1 % (1.0-4.0); HEMATOCRIT 37.3 % (37.0-47.0); MEAN CELL VOLUME 85.6 fl (81.0-99.0); MEAN CORPUSCULAR HGB 28.7 pg (27.0-31.0); MEAN CORPUSCULAR HGB CONC 33.5 g/dl (33.0-37.0); MEAN PLATELET VOLUME 10.5 fl (9.6-12.3); MONO # 0.6 10*3/uL (0.1-1.0); MONO % 5.1 % (3.0-9.0); NEUT # 6.6 10*3/uL (2.3-7.9); NEUT % 61.5 % (47.0-73.0); PLATELET COUNT AUTOMATED 438 10*3/uL (130-400); RED BLOOD COUNT 4.36 10*6/uL (4.10-5.10); WHITE BLOOD COUNT 10.7 10*3/uL (4.8-10.8)
[2025-01-20 00:32] LABS: ALKALINE PHOSPHATASE 125 U/L (46-116); BUN 18 mg/dl (9-23); CHLORIDE 103 mmol/L (98-107); POTASSIUM 3.6 mmol/L (3.4-5.1); SGPT/ALT 50 U/L (5-49); TOTAL PROTEIN 7.3 gm/dL (6.0-8.0)
[2025-01-20 02:12] LABS: BILIRUBIN Negative (Negative); BLOOD Negative (Negative); CLARITY Clear (Clear); COLOR Yellow (Yellow); GLUCOSE Negative (Negative); KETONE Negative (Negative); LEUKO ESTERASE Negative (Negative); NITRITE Negative (Negative); PH 6.5 (4.5-8.0); UROBILINOGEN 0.2 E.U./dl (0.0-1.0)
[2025-01-20 02:30] LABS: EPITHELIAL CELLS 16-20
[2025-01-20 02:31] LABS: BACTERIA TRACE
[2025-01-20] MEDS ORDERED: Ketorolac Tromethamine 30 MG/ML VIAL IV ONE (03:00)
[2025-01-20] MEDS ORDERED: AMOX-CLAV 875-1 EACH PO (04:54)
[2025-01-20] MEDS ORDERED: HYDROCODONE-AC1 EAC1 PO (04:54)
== END 2025-01-20 05:35 | disposition home or self-care (01) ==
LOC: ED 21:22
PROVIDERS: Emergency Medicine
DX: K57.32 Diverticulitis of large intestine without perforation or abscess without bleeding (principal); R11.10 Vomiting, unspecified; R19.7 Diarrhea, unspecified; I10 Essential (primary) hypertension; K21.9 Gastro-esophageal reflux disease without esophagitis; E78.5 Hyperlipidemia, unspecified; Z79.899 Other long term (current) drug therapy; Z98.890 Other specified postprocedural states; Z90.89 Acquired absence of other organs; Z87.891 Personal history of nicotine dependence

== ENCOUNTER → 2025-02-19 | Outpatient (CLI) | payer MEDICAID ==
[2025-02-20 05:06] LABS: HBsAG SCREEN Negative (Negative); HCV Ab Non Reactive (Non Reactive); HEP B CORE Ab, IgM Negative (Negative)
== END | disposition home or self-care (01) ==
LOC: LAB 11:43
PROVIDERS: ATTEND Internal Medicine Nephrology
DX: K70.0 Alcoholic fatty liver (principal)

== ENCOUNTER 2025-05-19 16:09 | Emergency (ER) | payer MEDICAID ==
[~2025-05-19] VITALS: Ht 154.9 cm; Wt 74.8 kg
[~2025-05-19 16:09] MED LIST changes: +ALDACTONE25 M1 PO; +CIPROFLOXACIN500 M4 PO; +HYGROTON25 MG PO; +LOSARTAN POTAS100 M1 PO; +PHENTERMINE H37.5 M3 PO; +PREGABALIN50 MG PO; +TRAZODONE50 MG PO
[2025-05-19] MEDS ORDERED: Ondansetron Hydrochloride 4 MG/2 ML VIAL IV ONE (19:05)
[2025-05-19] MEDS ORDERED: SODIUM CHLORIDE 0.9% 1,000 ML IV ONE ×2 (19:05→20:35)
[2025-05-19] MEDS ORDERED: IOHEXOL 300 MG/ML 100 ML VIAL IV ONE (19:15)
[2025-05-19 19:27] LABS: BILIRUBIN Negative (Negative); BLOOD Negative (Negative); CLARITY Cloudy (Clear); COLOR Yellow (Yellow); KETONE Negative (Negative); LEUKO ESTERASE 3+ (Negative); NITRITE Negative (Negative); PH 5.0 (4.5-8.0); SPECIFIC GRAVITY 1.010 (1.001-1.030); UROBILINOGEN 0.2 E.U./dl (0.0-1.0)
[2025-05-19 19:40] LABS: BACTERIA 1+; WBC 31-40 wbc/hpf (0-5)
[2025-05-19 19:54] LABS: BASO # 0.0 10*3/uL (0.0-0.1); BASO % 0.3 % (0.0-1.0); EOS # 0.1 10*3/uL (0.0-0.4); EOS % 0.8 % (1.0-4.0); MEAN CELL VOLUME 92.2 fl (81.0-99.0); MEAN CORPUSCULAR HGB 29.8 pg (27.0-31.0); MEAN PLATELET VOLUME 10.1 fl (9.6-12.3); MONO # 1.0 10*3/uL (0.1-1.0); MONO % 6.9 % (3.0-9.0); NEUT # 9.0 10*3/uL (2.3-7.9); NEUT % 62.0 % (47.0-73.0); NUCLEATED RED BLOOD CELL 0.0 % (0.0-0.0); NUCLEATED RED BLOOD CELL 0.0 10*3/uL (0.0-0.0); PLATELET COUNT AUTOMATED 344 10*3/uL (130-400); RED CELL DISTRI WIDTH 16.9 % (0-14.5)
[2025-05-19 20:24] LABS: BUN 14.0 mg/dl (9-23); SGPT/ALT 15.0 U/L (5-49)
[2025-05-20 01:59] VITALS: BP 122/77
== END 2025-05-20 02:57 | disposition short-term general hospital (02) ==
LOC: ED 16:09
PROVIDERS: Nurse Practitioner Family
DX: K35.80 Unspecified acute appendicitis (principal); N17.9 Acute kidney failure, unspecified; K57.92 Diverticulitis of intestine, part unspecified, without perforation or abscess without bleeding; I10 Essential (primary) hypertension; E03.9 Hypothyroidism, unspecified; K21.9 Gastro-esophageal reflux disease without esophagitis; F41.9 Anxiety disorder, unspecified; F12.90 Cannabis use, unspecified, uncomplicated; F17.200 Nicotine dependence, unspecified, uncomplicated; Z79.899 Other long term (current) drug therapy; Z90.89 Acquired absence of other organs; Z98.890 Other specified postprocedural states

== ENCOUNTER 2025-06-29 18:51 | Emergency (ER) | payer MEDICAID ==
[~2025-06-29] VITALS: Ht 154.9 cm; Wt 73.0 kg
[2025-06-29 19:04] VITALS: BP 185/90
[2025-06-29] MEDS ORDERED: IOHEXOL 300 MG/ML 100 ML VIAL IV ONE (20:40)
[2025-06-29 20:50] LABS: BASO # 0.0 10*3/uL (0.0-0.1); BASO % 0.3 % (0.0-1.0); EOS # 0.4 10*3/uL (0.0-0.4); EOS % 3.4 % (1.0-4.0); MEAN CELL VOLUME 91.6 fl (81.0-99.0); MEAN CORPUSCULAR HGB 29.1 pg (27.0-31.0); MEAN PLATELET VOLUME 9.4 fl (9.6-12.3); MONO # 0.7 10*3/uL (0.1-1.0); MONO % 6.0 % (3.0-9.0); NEUT # 5.7 10*3/uL (2.3-7.9); NEUT % 48.0 % (47.0-73.0); NUCLEATED RED BLOOD CELL 0.0 % (0.0-0.0); NUCLEATED RED BLOOD CELL 0.0 10*3/uL (0.0-0.0); PLATELET COUNT AUTOMATED 468 10*3/uL (130-400); RED CELL DISTRI WIDTH 17.1 % (0-14.5)
[2025-06-29 21:16] LABS: BUN 10 mg/dl (9-23); SGPT/ALT 12 U/L (5-49)
[2025-06-30] MEDS ORDERED: Acetaminophen/Hydrocodone 5 MG/325 MG TABLET PO ONE (00:15)
== END 2025-06-30 00:30 | disposition home or self-care (01) ==
LOC: ED 18:51
DX: G89.18 Other acute postprocedural pain (principal); R11.2 Nausea with vomiting, unspecified; R10.9 Unspecified abdominal pain; R19.7 Diarrhea, unspecified; I10 Essential (primary) hypertension; F17.210 Nicotine dependence, cigarettes, uncomplicated; F12.90 Cannabis use, unspecified, uncomplicated; Z98.890 Other specified postprocedural states; Z90.89 Acquired absence of other organs

== ENCOUNTER 2025-07-21 15:34 | Emergency (ER) | payer MEDICAID ==
[~2025-07-21] VITALS: Wt 73.0 kg
[2025-07-21 15:39] VITALS: BP 171/99
[2025-07-21] MEDS ORDERED: Ondansetron Hydrochloride 4 MG/2 ML VIAL IV ONE (15:50)
[2025-07-21] MEDS ORDERED: SODIUM CHLORIDE 0.9% 1,000 ML IV ONE (15:50)
[2025-07-21] MEDS ORDERED: IOHEXOL 300 MG/ML 100 ML VIAL IV ONE (15:55)
[2025-07-21 16:21] LABS: BASO # 0.0 10*3/uL (0.0-0.1); BASO % 0.2 % (0.0-1.0); EOS # 0.2 10*3/uL (0.0-0.4); EOS % 2.1 % (1.0-4.0); MEAN CELL VOLUME 89.8 fl (81.0-99.0); MEAN CORPUSCULAR HGB 29.2 pg (27.0-31.0); MEAN PLATELET VOLUME 9.4 fl (9.6-12.3); MONO # 0.6 10*3/uL (0.1-1.0); MONO % 6.2 % (3.0-9.0); NEUT # 4.5 10*3/uL (2.3-7.9); NEUT % 50.6 % (47.0-73.0); NUCLEATED RED BLOOD CELL 0.0 % (0.0-0.0); NUCLEATED RED BLOOD CELL 0.0 10*3/uL (0.0-0.0); PLATELET COUNT AUTOMATED 359 10*3/uL (130-400); RED CELL DISTRI WIDTH 17.3 % (0-14.5)
[2025-07-21 16:42] LABS: BUN 6 mg/dl (9-23); SGPT/ALT 15 U/L (5-49)
[2025-07-21] MEDS ORDERED: POTASSIUM CHLORIDE 20 MEQ TAB PO ONE (17:10)
[2025-07-21] MEDS ORDERED: AMOX-CLAV 875-1 EACH PO (18:38)
[2025-07-21] MEDS ORDERED: Ondansetron4 MG PO (18:38)
[2025-07-21] MEDS ORDERED: PERCOCET 5-3251 EACH PO (18:38)
[2025-07-21] MEDS ORDERED: Amoxicillin/Clavulanate Pota 875 MG TAB PO ONE (18:40)
[2025-07-21] MEDS ORDERED: Acetaminophen/Oxycodone 5 MG/325 MG TABLET PO ONE (18:40)
== END 2025-07-21 18:42 | disposition home or self-care (01) ==
LOC: ED 15:34
PROVIDERS: Nurse Practitioner Family
DX: K57.92 Diverticulitis of intestine, part unspecified, without perforation or abscess without bleeding (principal); E87.6 Hypokalemia; K21.9 Gastro-esophageal reflux disease without esophagitis; R10.12 Left upper quadrant pain; E78.5 Hyperlipidemia, unspecified; I10 Essential (primary) hypertension; E78.00 Pure hypercholesterolemia, unspecified; F17.210 Nicotine dependence, cigarettes, uncomplicated; F12.90 Cannabis use, unspecified, uncomplicated; Z88.1 Allergy status to other antibiotic agents; Z98.890 Other specified postprocedural states; Z90.89 Acquired absence of other organs; Z87.442 Personal history of urinary calculi

== ENCOUNTER 2025-07-24 15:37 | Inpatient (IN) | payer MEDICAID ==
[~2025-07-24] VITALS: Ht 154.9 cm; Wt 76.2 kg
[~2025-07-24 15:37] MED LIST changes: +Ondansetron4 MG PO
[2025-07-24 16:00] VITALS: BP 157/81
[2025-07-24 16:14] LABS: BASO # 0.0 10*3/uL (0.0-0.1); BASO % 0.3 % (0.0-1.0); EOS # 0.2 10*3/uL (0.0-0.4); EOS % 2.6 % (1.0-4.0); MEAN CELL VOLUME 90.8 fl (81.0-99.0); MEAN CORPUSCULAR HGB 28.8 pg (27.0-31.0); MEAN PLATELET VOLUME 9.4 fl (9.6-12.3); MONO # 0.5 10*3/uL (0.1-1.0); MONO % 5.2 % (3.0-9.0); NEUT # 5.0 10*3/uL (2.3-7.9); NEUT % 54.2 % (47.0-73.0); NUCLEATED RED BLOOD CELL 0.0 % (0.0-0.0); NUCLEATED RED BLOOD CELL 0.0 10*3/uL (0.0-0.0); PLATELET COUNT AUTOMATED 351 10*3/uL (130-400); RED CELL DISTRI WIDTH 17.5 % (0-14.5)
[2025-07-24] MEDS ORDERED: Ampicillin Sodium/Sulbactam 3 GM in SODIUM CHLORIDE 0.9% 100 ML IV ONE (16:45)
[2025-07-24 16:49] LABS: BUN 8 mg/dl (9-23)
[2025-07-24] MEDS ORDERED: SODIUM CHLORIDE 0.9% 1,000 ML IV SCH (17:15)
[2025-07-24] MEDS ORDERED: HYDROmorphONE Hydrochloride 0.5 MG/0.5 ML SYRINGE IV PRN (21:15)
[2025-07-24] MEDS ORDERED: IOHEXOL 9 MG/ML (IODINE) ORAL SOLUTION PO ONE (21:55)
[2025-07-24] MEDS ORDERED: Synthroid,Levo25 MCG PO (22:54)
[2025-07-24] MEDS ORDERED: COZAAR50 M1 PO (22:54)
[2025-07-24] MEDS ORDERED: SENOKOT8.6 MG PO (22:54)
[2025-07-24] MEDS ORDERED: ONDANSETRON HYDR4 MG PO (22:55)
[2025-07-24 23:00] VITALS: BP 164/92
[2025-07-24] MEDS ORDERED: Acetaminophen/Oxycodone 5 MG/325 MG TABLET PO PRN (23:15)
[2025-07-25] MEDS ORDERED: Ampicillin Sodium/Sulbactam 3 GM in SODIUM CHLORIDE 0.9% 100 ML IV SCH
[2025-07-25 05:20] LABS: BUN 7 mg/dl (9-23); SGPT/ALT 14 U/L (5-49)
[2025-07-25 06:20] LABS: BASO # 0.0 10*3/uL (0.0-0.1); BASO % 0.4 % (0.0-1.0); EOS # 0.2 10*3/uL (0.0-0.4); EOS % 2.6 % (1.0-4.0); MEAN CELL VOLUME 91.1 fl (81.0-99.0); MEAN CORPUSCULAR HGB 29.3 pg (27.0-31.0); MEAN PLATELET VOLUME 10.2 fl (9.6-12.3); MONO # 0.4 10*3/uL (0.1-1.0); MONO % 4.8 % (3.0-9.0); NEUT # 4.0 10*3/uL (2.3-7.9); NEUT % 46.3 % (47.0-73.0); NUCLEATED RED BLOOD CELL 0.0 % (0.0-0.0); NUCLEATED RED BLOOD CELL 0.0 10*3/uL (0.0-0.0); PLATELET COUNT AUTOMATED 344 10*3/uL (130-400); RED CELL DISTRI WIDTH 17.6 % (0-14.5)
[2025-07-25 08:00] VITALS: BP 112/99
[2025-07-25] MEDS ORDERED: SPIRONOLACTONE 25 MG TAB PO SCH (10:00)
[2025-07-25] MEDS ORDERED: PREGABALIN 50 MG CAP PO SCH (10:00)
[2025-07-25] MEDS ORDERED: Ondansetron Hydrochloride 4 MG TAB PO SCH (10:00)
[2025-07-25] MEDS ORDERED: CHLORTHALIDONE 25 MG TAB PO SCH (10:00)
[2025-07-25 11:40] VITALS: BP 141/93
[2025-07-25 16:00] VITALS: BP 144/78
[2025-07-25 20:00] VITALS: BP 146/84
[2025-07-26 02:00] VITALS: BP 118/75
[2025-07-26 08:00] VITALS: BP 141/83
[2025-07-26 12:00] VITALS: BP 132/90
[2025-07-26 16:00] VITALS: BP 132/90
[2025-07-26 20:00] VITALS: BP 126/63; BP 145/88
[2025-07-27] VITALS: BP 137/72
[2025-07-27 08:00] VITALS: BP 142/73
[2025-07-27 12:00] VITALS: BP 145/87
[2025-07-27] MEDS ORDERED: Ondansetron Hydrochloride 4 MG TAB PO PRN (15:47)
[2025-07-27] MEDS ORDERED: Dicyclomine Hydrochloride 20 MG TAB PO ONE (15:50)
[2025-07-27 16:00] VITALS: BP 150/84
[2025-07-27 20:00] VITALS: BP 110/57
[2025-07-27] MEDS ORDERED: Dicyclomine Hydrochloride 20 MG TAB PO SCH (22:00)
[2025-07-27] MEDS ORDERED: ERTAPENEM1 GM IV (23:48)
[2025-07-28] VITALS: BP 113/76
[2025-07-28 06:17] LABS: BUN 10 mg/dl (9-23); SGPT/ALT 15 U/L (5-49)
[2025-07-28 06:31] LABS: BASO # 0.0 10*3/uL (0.0-0.1); BASO % 0.4 % (0.0-1.0); EOS # 0.2 10*3/uL (0.0-0.4); EOS % 3.1 % (1.0-4.0); MEAN CELL VOLUME 90.5 fl (81.0-99.0); MEAN CORPUSCULAR HGB 28.9 pg (27.0-31.0); MEAN PLATELET VOLUME 10.2 fl (9.6-12.3); MONO # 0.5 10*3/uL (0.1-1.0); MONO % 5.8 % (3.0-9.0); NEUT # 3.0 10*3/uL (2.3-7.9); NEUT % 38.6 % (47.0-73.0); NUCLEATED RED BLOOD CELL 0.0 % (0.0-0.0); NUCLEATED RED BLOOD CELL 0.0 10*3/uL (0.0-0.0); PLATELET COUNT AUTOMATED 338 10*3/uL (130-400); RED CELL DISTRI WIDTH 17.0 % (0-14.5)
[2025-07-28 08:00] VITALS: BP 142/70
[2025-07-28] MEDS ORDERED: **NF** (Ertapenem 1 GM) IV SCH (10:00)
[2025-07-28 12:00] VITALS: BP 155/74
[2025-07-28] MEDS ORDERED: DICYCLOMINE HYD20 MG PO (12:26)
== END 2025-07-28 15:27 | disposition home or self-care (01) | DRG 244 ==
LOC: ED 15:37 → 5E 16:46 → EDHOLD 16:46 → 5E 20:26
PROVIDERS: Internal Medicine Infectious Disease; Student in an Organized Health Care Education/Training Program; ADMIT Internal Medicine; ATTEND Internal Medicine
DX: K57.32 Diverticulitis of large intestine without perforation or abscess without bleeding (principal); A04.9 Bacterial intestinal infection, unspecified; K59.9 Functional intestinal disorder, unspecified; K21.9 Gastro-esophageal reflux disease without esophagitis; E78.5 Hyperlipidemia, unspecified; I10 Essential (primary) hypertension; M35.3 Polymyalgia rheumatica; E03.9 Hypothyroidism, unspecified; M79.7 Fibromyalgia; Z88.8 Allergy status to other drugs, medicaments and biological substances; Z79.899 Other long term (current) drug therapy; Z79.01 Long term (current) use of anticoagulants; Z79.2 Long term (current) use of antibiotics; Z98.891 History of uterine scar from previous surgery; Z87.891 Personal history of nicotine dependence